=== PATIENT | male | born 1940 | race Caucasian/White ===

== ENCOUNTER 2019-12-03 09:48 | Observation (INO) | payer MEDICARE, SELFPAY ==
[2019-12-02] VITALS (16 sets, daily range): BP systolic 120–161; BP diastolic 59–89; PULSE 48–77; RESP 12–18; TEMP 36.9–37.4; O2SAT 94–98; BMI 31.4
[2019-12-02 09:09] LABS: Basophils Percent Auto 0.4 % (0.2-1.2); Eosinophils Absolute Auto 0.2 K/mm3 (0-0.3); Eosinophils Percent Auto 2.4 % (0-4.4); Hematocrit 44.9 % (42.0-52.0); Hemoglobin 15.9 g/dL (14.0-18.0); Immature Granulocyte Absolute 0.02 K/mm3 (0.00-0.031); Immature Granulocyte Percent A 0.3 % (0-0.5); Lymphocytes Absolute Auto 1.45 K/mm3 (0.9-3.2); Lymphocytes Percent Auto 20.2 % (18.3-44.2); Mean Corpuscular HGB Conc 35.4 g/dl (32-36); Mean Corpuscular Hemoglobin 32.4 pg (26-34); Mean Corpuscular Volume 91.4 fl (80-100); Monocytes Absolute Auto 0.7 K/mm3 (0.1-0.6); Monocytes Percent Auto 9.2 % (2.6-8.5); Neutrophils Absolute Auto 4.9 K/mm3 (1.3-6.7); Neutrophils Percent Auto 67.5 % (45.5-73.1); Platelet Count Result 172 k/mm3 (150-375); Red Blood Count 4.91 M/mm3 (4.6-6.20); Red Cell Distribution Width 11.7 % (11.5-14.5); White Blood Count 7.2 K/mm3 (4.5-10.0)
[2019-12-02 09:19] LABS: Prothrombin Time 12.4 Seconds (11.1-14.7)
[2019-12-02 09:21] LABS: Alanine Aminotransferase 18 U/L (4-50); Albumin Level 4.1 g/dL (3.5-5.1); Alkaline Phosphatase 89 U/L (38-126); Aspartate Amino Transferase 22 U/L (17-59); Bilirubin,Total 1.2 mg/dL (0.2-1.3); Blood Urea Nitrogen 20 mg/dL (9-20); Calcium 9.3 mg/dL (8.4-10.2); Carbon Dioxide 26 mmol/L (22-30); Chloride 106 mmol/L (98-107); Estimated Glomerular Filt Rate > 60; Glucose 126 mg/dL (75-110); Potassium 3.7 mmol/L (3.4-5.0); Sodium 136 mmol/L (137-145)
--- NOTE | 2019-12-02 11:12 | WPDHPUPDATE1 ---
History and Physical Update Update Date/Time: 12/02/19 11:12 History and Physical has been reviewed, including an updated exam of the patient. There are NO changes in the patient's condition. Risks, benefits, and alternatives have been discussed and questions answered. Patient agrees to proceed with procedure.
--- NOTE | 2019-12-02 11:13 | WPDMODSED ---
Moderate Sedation Note-Pt Data Patient Data Allergies Allergy/AdvReac Type Severity Reaction Status Date / Time No Known Allergies Allergy Unknown Verified 11/25/19 14:20 Home Medications Medication Instructions Recorded Confirmed Type finasteride 5 mg tablet 5 mg PO DAILY 11/11/19 12/01/19 History hydrochlorothiazide 25 mg tablet 25 mg PO DAILY #30 tablet 11/11/19 12/01/19 Rx losartan 100 mg tablet 100 mg PO DAILY 11/11/19 12/01/19 History nebivolol 20 mg tablet 40 mg PO DAILY #60 tablet 11/11/19 12/01/19 Rx omega-3 fatty acids 1,000 mg 1,000 mg PO DAILY 11/11/19 12/01/19 History capsule pantoprazole 20 mg tablet,delayed 40 mg PO DAILY tablet 11/11/19 12/02/19 History release pramipexole 0.5 mg tablet 0.5 mg PO DAILY tablet 11/11/19 12/01/19 History amlodipine 5 mg tablet 5 mg PO DAILY #30 tablet 11/25/19 12/01/19 Rx aspirin 81 mg tablet,delayed 81 mg PO DAILY #30 tablet 11/25/19 12/01/19 Rx release pravastatin 10 mg tablet 10 mg PO DAILY #30 tablet 11/25/19 12/01/19 Rx Current Medications: Active Medications Sodium Chloride (Normal Saline Iv) 500 mls @ 100 mls/hr IV CONT .Q5H FRIEDA Sedation/Anesthesia: No previous sedation/anesthesia problems (including family history). [facility] Family History Family History (Updated 12/01/19 @ 14:59 by Malathi Enrique RN) Sibling Acute myocardial infarction Social History Social History Smoking status: Never smoker Mod Sed Physical Exam Physical Exam Pre Procedural Exam: Normal: Airway Hours since solid foods: 10 Hours since liquid intake: 10 Internal Medicine - PN: Obj Da Vital Signs Vital Signs: Vital Signs - 24 hr 12/02/19 09:00 Temperature 37.1 C Pulse Rate 60 Respiratory Rate 12 Blood Pressure 161/75 H Pulse Oximetry 98 Meds/Results Medications: Active Medications Generic Name Dose Route Start Last Admin Trade Name Freq PRN Reason Stop Dose Admin Sodium Chloride 500 mls @ 100 mls/hr 12/02/19 06:15 Normal Saline Iv IV CONT .Q5H FRIEDA Labs CBC & Chem 7: 12/02/19 09:02 12/02/19 09:02 Labs: Laboratory Results - last 24 hr 12/02/19 12/02/19 12/02/19 09:02 09:02 09:02 WBC 7.2 RBC 4.91 Hgb 15.9 Hct 44.9 MCV 91.4 MCH 32.4 MCHC 35.4 RDW 11.7 Plt Count 172 MPV 9.0 Immature Gran % (Auto) 0.3 Neut % (Auto) 67.5 Lymph % (Auto) 20.2 Ward % (Auto) 9.2 H Eos % (Auto) 2.4 Baso % (Auto) 0.4 Lymph # (Auto) 1.45 Ward # (Auto) 0.7 H Eos # (Auto) 0.2 Baso # (Auto) 0.0 Abs Immat Gran (auto) 0.02 Absolute Neuts (auto) 4.9 Absolute Nucleated RBC 0.0 Nucleated RBC % 0.0 PT 12.4 INR 1.0 Sodium 136 L Potassium 3.7 Chloride 106 Carbon Dioxide 26 BUN 20 Creatinine 1.00 Estim Creat Clear Calc Not Reportable Estimated GFR > 60 Glucose 126 H Calcium 9.3 Total Bilirubin 1.2 AST 22 ALT 18 Alkaline Phosphatase 89 Total Protein 7.0 Albumin 4.1 ASA Classification/Sedation ASA Classification/Sedation Risks: Risks, benefits and alternatives explained and patient/family accepted plan for sedation. Patient re-evaluated immediately prior to sedation.
--- NOTE | 2019-12-02 12:14 | WPDCARDPROC ---
Cardiac Cath Procedure Note Date of procedure:: 12/02/19 Performing physician:: Karl Aguilera MD Indication:: Chest pain, shortness of breath; obstructive CAD found on coronary CT angiogram Brief clinical history:: 79-year-old male with CAD, hypertension. Patient was referred by for coronary angiogram in the setting of dyspnea on exertion. More recently, he has been experiencing chest discomfort for last 2-3 days. Patient had coronary CT angiogram at [facility] on 11/18/2019 which reportedly showed a calcium score of 110; severe stenosis of mid LAD with both calcified and noncalcified plaque with difficulty measuring the lumen; mild stenosis mid RCA, proximal left main and left circumflex artery. Benefits, risks and alternatives of the procedure were discussed with the patient and his and informed consent was taken prior to the procedure. Procedure Procedure note:: CARDIAC CATHETERIZATION AND PERCUTANEOUS CORONARY INTERVENTION REPORT DATE OF PROCEDURE: 12/02/2019 INDICATION FOR PROCEDURE: chest pain, shortness of breath, obstructive CAD on coronary CT angiogram PROCEDURES PERFORMED: 1. Left heart catheterization- Selective left and right coronary angiogram; left ventriculogram and hemodynamic assessment 2. Percutaneous coronary intervention- A) balloon angioplasty and stenting of proximal -mid LAD using a 4.0 x 22 mm Biotronik orsiro sirolimus eluting stent under intravascular ultrasound guidance B) intravascular ultrasound (IVUS) of proximal and mid LAD 3. Selective right common femoral angiogram and deployment of Angio-Seal hemostatic device 4. Moderate sedation-CPT code 94002 MODERATE SEDATION: Midazolam 1 mg; fentanyl 25 mcg. Start time 1118 , Stop time 1209 ; Total [id number] time 51 minutes; Justus Wilcox RN was trained observer for moderate sedation. ACCESS SITE: Right common femoral artery PROCEDURE NOTE: After obtaining informed consent, patient was brought to catheterization lab and prepped and draped in a usual sterile manner. After local anesthesia with lidocaine, right common femoral artery access was taken with micropuncture needle followed by insertion of a 6 Djiboutian sheath. Selective left and right coronary angiogram was performed using 5 Djiboutian JL5 and JR4 catheters respectively. Orthogonal views were taken. Next, a 5 [place]iboutian pigtail catheter was advanced in the LV cavity and was flushed with normal saline. LV pressure measurement was performed. After this, left ventriculogram was performed. The catheter was flushed again, and gradient across the aortic valve was measured on the pullback of the catheter. Selective right common femoral angiogram was performed after PCI followed by successful deployment of Angio-Seal vascular closure device. Patient tolerated procedure well without any immediate procedure related complications. FINDINGS: LEFT MAIN CORONARY: the left main coronary artery is a large caliber vessel with minimal irregularity in the mid segment. The vessel bifurcates into LAD and left circumflex branches. LEFT ANTERIOR DESCENDING ARTERY: The LAD is a large caliber vessel which tapers distally and reaches the LV apex. There is coks-jx-ojeydjhd disease in the lower part of the proximal segment and poorly defined, napkin ring stenosis in the mid segment at the origin of a small size septal assistant customer service manager branch which has high-grade ostial stenosis. The diagonal branches are small size vessels without significant focal stenosis. LEFT CIRCUMFLEX ARTERY: The left circumflex artery is a large-sized vessel with mild narrowing at the ostium and proximal segment. The vessel gives rise to small to medium-sized OM 1 branch and essentially continues as large size OM 2 branch without significant focal stenosis. RIGHT CORONARY ARTERY: the right coronary artery is a medium to large-sized vessel with mild 20-30% eccentric plaque in the mid segment. The vessel gives rise to small-sized PDA an
--- NOTE | 2019-12-02 12:20 | SUR.PHASEII ---
BEGIN PHASE II RECOVERY. RETURNS TO IMPLEMENTATION PROJECT MANAGER 5 VIA STRETCHER S/P [facility] W/ PCI TO PROX LAD BY DR. KNOWLES. TRANSFERRED TO BED. ANGIOSEAL CLOSURE DEVICE TO R.FA PUNCTURE SITE, COVERED W/ C/D/I GUAZE AND TEGADERM DRESSING. SITE SOFT, NONTENDER. NO BLEEDING OR HEMATOMA NOTED TO SITE. A&OX 3, AWAKE, DENIES PAIN. IVF'S INFUSING ORDERED POST PCI. BEDREST X 2 HOURS UNTIL 1408. VSS. R. PEDAL PULSE STRONG; SENSATION AND MOVEMENT TO R. FOOT WNL. TO BEDSIDE. WILL CONTINUE TO MONITOR.
--- NOTE | 2019-12-02 13:20 | SUR.PHASEII ---
END PHASE II RECOVERY AT THIS TIME. PT. ADMITTED TO EXTENDED RECOVERY POST OUTPATIENT PROCEDURE. TO REMAIN IN TECHNICAL DATA ANALYST 5 FOR STAY. SEE PCS FOR FURTHER DOCUMENATION. R. GROIN SITE REMAINS UNCHANGED. HAS BEEN UNABLE TO VOID X 2 ATTEMPTS IN URINAL WHILE ON BEDREST. BLADDER DISTENTION NOTED AND INCREASING REPORTS OF DISCOMFORT AT BLADDER AREA. 18FR HILLMAN INSERTED PER ORDER AND REQUEST OF PT. WITHOUT DIFFICULTY AT 1315. TOLERATED WELL. INITIAL RETURN OF URINE CLEAR YELLOW. VOICED RELIEF OF BLADDER DISFOMFORT AND BLADDER DISTENTION SUBSIDED. VSS. RESTING W/ EYES CLOSED AT THIS TIME. AT BEDSIDE. WILL CONTINUE TO MONITOR.
--- NOTE | 2019-12-02 13:21 | ADMGEN ---
This patient, Stephen Sol, was admitted to ([facility]) [facility] EXTENDED RECOVERY POST OUTPATIENT PROCEDURE ([facility]HC W/ PCI W/ DR. KNOWLES). Patient/family oriented to hospital policies and general routines including ID bracelet, bed and alarms, visiting hours, pain management, procedures, bathroom and other care routines, personal items, smoking policy, room service/diet, and visiting hours. Valuables list has been completed. Information on how to activate the Rapid Response Team has been discussed. Patient/Family are encouraged to report perceived risks to care and to ask questions if they do not understand what they are told or what they should do.
--- NOTE | 2019-12-02 14:00 | ECG_ITS ---
Measurements Intervals [place] Rate: 51 P: 47 KS: 277 QRS: -22 QRSD: 112 T: 5 QT: 443 QTc: 410 Interpretive Statements SINUS BRADYCARDIA WITH FIRST DEGREE AV BLOCK POSSIBLE LEFT VENTRICULAR HYPERTROPHY MINIMAL Q WAVES- LATERAL LEADS ABNORMAL ECG Electronically Signed On 12-02-2019 14:58:26 CDT by Margarito Aguila D.O.
--- NOTE | 2019-12-02 14:30 | PC.NURSE ---
HAS BEEN HAVING BLOODY URINE DRAINING FROM HILLMAN SINCE APPROX 10 - 15 MINUTES AFTER UNEVENTFUL INSERTION AT 1315. ROMEO CLEVELAND STUCCO MASON FROM [facility] NOTIFIED AND AWARE. VISUALIZED CATHETER. IVF'S RUNNING ORDERED. ANGIOMAX GTT WAS COMPLETED AT 1330 AND HAD RECEIVED BRILINTA AND ASA DOSE IN CARDIAC RESUME WRITER. WILL CONTINUE TO MONITOR AT THIS TIME. R. GROIN CATH SITE CLEAR. GUAZE AND TEGADERM DRESSING C/D/I. R. PEDAL PULSE STRONG.
--- NOTE | 2019-12-02 15:30 | PC.NURSE ---
URINE HAS NOT CLEARED NOW THAT 2 HOURS HAS PASSED SINCE ANGIOMAX GTT OFF AT 1330. UROLOGY CONSULT ORDERED BY ROMEO CLEVELAND NP FROM [facility]. UROLOGY CONSULT CALLED TO DR. MELENDEZ' OFFICE.
[2019-12-02] MEDS: SODIUM CHLORIDE 0.9% IV 1,000 ML 125 ML IV CONT (16:00)
--- NOTE | 2019-12-02 16:00 | PC.NURSE ---
POWER DISTRIBUTION ENGINEER DIANA RUBIN FROM UROLOGY HERE TO SEE PT. PT. NOW W/ C/O BLADDER PAIN AT TIMES AND SPASMS.
--- NOTE | 2019-12-02 16:07 | WPDURCON ---
Assessment and Plan Assessment and plan (1) Gross hematuria: Code(s): R31.0 - Gross hematuria Status: Acute Assessment and Plan: Will plan to switch catheter out for a 22fr [address] reyes and start CBI. May get a RODNEY in the am if no improvement. (2) BPH (benign prostatic hyperplasia): Code(s): N40.0 - Benign prostatic hyperplasia without lower urinary tract symptoms Status: Acute Assessment and Plan: Continue Finasteride. Will start Flomax as well. (3) Urinary retention: Code(s): R33.9 - Retention of urine, unspecified Status: Acute Assessment and Plan: Likely secondary to anesthesia. Will plan to do a voiding trial prior to discharge. Urology Consult Note HPI Date Seen: 12/02/19 Requesting Physician: Karl Aguilera MD Primary Care Provider: George Martin, Consult Narrative Narrative: Stephen Sol is a 79 year old male who underwent cardiac catheterization today with stent placement. He was given anti-coagulants and went into urinary retention post operatively resulting in a catheter placement. The catheter was easily placed without difficulty, urine return initially was clear and yellow but slowly changed from yellow to pink and then to bright red blood. He is also c/o bladder spasms with urethral bleeding. His creatinine was 1.00 and WBC is 7.2. He has been on Finasteride for years for BPH but denies any difficulty urinating at home prior to his procedure. He also denies abdominal or flank pain or dysuria. Review of Systems Cardiovascular: Cardiovascular: Denies chest pain Respiratory: Respiratory: Reports no additional respiratory complaints Gastrointestinal: Gastrointestinal: Denies abdominal pain, Denies nausea and Denies vomiting Genitourinary: Genitourinary: Reports hematuria and Reports other (urinary retention) [facility] Past Medical History Medical History Edema of both ankles HTN (hypertension) Surgical History Surgical History History of appendectomy Family History Family History Sibling Acute myocardial infarction Social History Social History Smoking status: Never smoker Meds Home Medications and Allergies Home Medications Medication Instructions Recorded Confirmed Type finasteride 5 mg tablet 5 mg PO DAILY 11/11/19 12/02/19 History hydrochlorothiazide 25 mg tablet 25 mg PO DAILY #30 tablet 11/11/19 12/02/19 Rx losartan 100 mg tablet 100 mg PO DAILY 11/11/19 12/02/19 History nebivolol 20 mg tablet 40 mg PO DAILY #60 tablet 11/11/19 12/02/19 Rx omega-3 fatty acids 1,000 mg 1,000 mg PO DAILY 11/11/19 12/02/19 History capsule pantoprazole 20 mg tablet,delayed 40 mg PO Q12H tablet 11/11/19 12/02/19 History release pramipexole 0.5 mg tablet 0.5 mg PO HS tablet 11/11/19 12/02/19 History amlodipine 5 mg tablet 5 mg PO DAILY #30 tablet 11/25/19 12/02/19 Rx aspirin 81 mg tablet,delayed 81 mg PO DAILY #30 tablet 11/25/19 12/02/19 Rx release pravastatin 10 mg tablet 10 mg PO DAILY #30 tablet 11/25/19 12/02/19 Rx Allergies Allergy/AdvReac Type Severity Reaction Status Date / Time No Known Allergies Allergy Unknown Verified 11/25/19 14:20 Vital Signs Vital Signs - 24 hr 12/02/19 09:00 Temperature 98.8 F Pulse Rate 60 Respiratory Rate 12 Blood Pressure 161/75 H Pulse Oximetry 98 Exam Resp: Effort & Inspection: normal respiratory effort Cardio: Rate: regular rate GI: GI Palp: No abdominal tenderness : Meatus: Blood at meatus present Urinary Catheter: Urinary Catheter: patent and draining, urine cloudy and urine red Results Labs CBC & Chem 7: 12/02/19 09:02 12/02/19 09:02 Labs: Short CBC 12/02/19 Range/Units 09:02 WBC 7.2 (4.5-10.0)
--- NOTE | 2019-12-02 17:27 | PC.NURSE ---
ORDERS RECEIVED FROM YAMILEX RUBIN TO EXCHANGE HILLMAN CATHETER TO [address]FR [address] AND INITIATE CBI. PT'S UO HAS DROPPED OFF AND IS HAVING BLADDER PAIN AND SPASMS INTERMITTANTLY. SUPPLIES HAVE BEEN ORDERED AND ARE HERE. ATTEMPTED TO IRRIGATE CURRENT 18FR HILLMAN W/ STERILE SALINE TO CHECK URINE FLOW, BUT UNABLE TO ASPIRATE ANY URINE OR BLOODY URINE OR CLOTS FROM CATHETER AFTER INSTILLING SMALL AMOUNT OF STERILE SALINE. PT. ALSO C/O INCREASED DISCOMFORT WHEN IRRIGATED. CALL PLACED TO DR. MELENDEZ' EXCHANGE TO REPORT AND REQEUST ORDERS.
--- NOTE | 2019-12-02 18:05 | PC.NURSE ---
RETURN CALL RECEIVED FROM DR. BERG AT THIS TIME, RE: BLOODY URINE AND PAIN CONCERNS. NOTIFIED OF CONCERNS. HE REQUESTED THAT CYSTO CART BE BROUGHT TO BEDSIDE AND HE WILL ATTEMPT TO NOTIFY DR. MELENDEZ TO COME SEE PT.
--- NOTE | 2019-12-02 18:39 | PC.NURSE ---
DR. MELENDEZ HERE TO SEE PT RE: BLOODY DECREASED URINE OUTPUT AND BLADDER PAIN/SPASMS.
[2019-12-02] MEDS: MORPHINE SULFATE 2 MG/ML INJ 1 MG IV PUSH ×3 (18:55→23:43)
[2019-12-02] MEDS: PRAMIPEXOLE 0.5 MG TABLET PO (21:08)
[2019-12-02] MEDS: TICAGRELOR 90 MG TABLET PO (21:08)
[2019-12-02] MEDS: TAMSULOSIN HCL 0.4 MG CAPSULE PO (21:09)
[2019-12-02] MEDS: PANTOPRAZOLE 40 MG TABLET PO (21:44)
[2019-12-03] VITALS (13 sets, daily range): BP systolic 115–150; BP diastolic 53–94; PULSE 50–78; RESP 12–18; TEMP 36.4–37.1; O2SAT 94–100
[2019-12-03] MEDS: MORPHINE SULFATE 2 MG/ML INJ 1 MG IV PUSH ×3 (01:46→12:38)
--- NOTE | 2019-12-03 02:06 | PC.NURSE ---
12/03/19: 0202: AT 1839 ON THE November, DR BOBO WAS HERE TO PLACE DISCONTINUE THE CURRENT HILLMAN CATHETER AND PLACE A 3-WAY CATHETER IN PATIENT. PATIENT IS HAVING DARK RED URINE WITH CLOTS AND IS WAS AT THE TIME HAVING LOTS OF PAIN AND DIFFICULTY PASSING URINE. BLOOD CLOTS WERE REMOVED AND CATHETER IS SET TO WIDE OPEN. SINCE THEN THE BAGS ARE CHANGED EVER 30 MIN. AND THE PATIENT HAS HAD CLOTS BLOCKING TWICE EVEN WITH WIDE OPEN. PATIENT WOULD CALL OUT STATING THAT THE PAIN IS UNBEARABLE . BAG WILL BE STOPPED AND URINE FLOW STOPPED. IRRIGATED CATHETER AND WAS ABLE TO REMOVE CLOTS AND WAS ABLE TO GET FLOW AGAIN. STILL A BRIGHT RED BLOOD.
[2019-12-03 06:21] LABS: Hematocrit 39.6 % (42.0-52.0); Hemoglobin 14.1 g/dL (14.0-18.0); Mean Corpuscular HGB Conc 35.6 g/dl (32-36); Mean Corpuscular Hemoglobin 32.8 pg (26-34); Mean Corpuscular Volume 92.1 fl (80-100); Mean Platelet Volume 9.3 fl (7.4-10.4); Platelet Count Result 168 k/mm3 (150-375); Red Cell Distribution Width 11.8 % (11.5-14.5); White Blood Count 10.5 K/mm3 (4.5-10.0)
[2019-12-03 06:34] LABS: Blood Urea Nitrogen 22 mg/dL (9-20); Calcium 8.6 mg/dL (8.4-10.2); Carbon Dioxide 25 mmol/L (22-30); Chloride 105 mmol/L (98-107); Estimated CRCL calculation 73 ml/min; Estimated Glomerular Filt Rate > 60; Glucose 146 mg/dL (75-110); Potassium 3.6 mmol/L (3.4-5.0); Sodium 135 mmol/L (137-145)
--- NOTE | 2019-12-03 08:44 | WPDPN ---
Progress Note: A&P Assessment and Plan (1) BPH (benign prostatic hyperplasia): Code(s): N40.0 - Benign prostatic hyperplasia without lower urinary tract symptoms Status: Acute (2) Gross hematuria: Code(s): R31.0 - Gross hematuria Status: Acute Assessment and Plan: - Irrigation at bedside with removal of ~ 30ml of clot, CBI resumed and urine clear - continue CBI , okay to titrate to clear - continue Finasteride Review of Systems Review of Systems: All systems reviewed & are unremarkable except as noted in HPI and below Constitutional: Constitutional: Reports no additional constitutional complaints Eyes: Eyes: Reports no additional eye complaints Gastrointestinal: Gastrointestinal: Reports no additional gastrointestinal complaints Genitourinary: Comments: catheter pain Exam Const: General: no acute distress Eyes: General: appearance normal, both eyes and all related structures GI: Inspection: non-distended GI Palp: No Tenderness to palpation present (GI) : Other: CBi with red urine Objective Data Vital Signs Vital Signs: Vital Signs - 24 hr 12/02/19 09:00 12/02/19 12:30 12/02/19 12:45 Temperature 37.1 C 36.9 C Pulse Rate 60 60 56 L Pulse Rate [Bilateral Pedal (Dorsalis Pedis) Palpation] Respiratory Rate 12 16 16 Blood Pressure 161/75 H 154/83 H 160/68 H Pulse Oximetry 98 95 94 12/02/19 13:00 12/02/19 13:15 12/02/19 13:45 Temperature Pulse Rate 57 L 50 L 48 L Pulse Rate [Bilateral Pedal (Dorsalis Pedis) Palpation] Respiratory Rate 16 16 16 Blood Pressure 155/71 H 127/77 128/75 Pulse Oximetry 95 94 96 12/02/19 14:00 12/02/19 14:15 12/02/19 15:15 Temperature Pulse Rate 54 L 56 L 68 Pulse Rate [Bilateral Pedal (Dorsalis Pedis) Palpation] Respiratory Rate 16 16 Blood Pressure 139/59 L 144/72 H Pulse Oximetry 96 98 12/02/19 16:00 12/02/19 16:15 12/02/19 17:15 Temperature Pulse Rate 59 L 62 61 Pulse Rate [Bilateral Pedal (Dorsalis Pedis) Palpation] Respiratory Rate 16 18 Blood Pressure 132/70 120/81 Pulse Oximetry 98 97 12/02/19 18:00 12/02/19 18:15 12/02/19 20:00 Temperature 37.4 C 37.1 C Pulse Rate 66 66 77 Pulse Rate [Bilateral Pedal (Dorsalis Pedis) Palpation] 67 Respiratory Rate 18 17 Blood Pressure 145/89 H 150/86 H Pulse Oximetry 98 97 12/02/19 22:00 12/03/19 00:00 12/03/19 02:00 Temperature 37.1 C Pulse Rate 68 69 58 L Pulse Rate [Bilateral Pedal (Dorsalis Pedis) Palpation] Respiratory Rate 16 Blood Pressure 140/76 Pulse Oximetry 94 12/03/19 04:00 12/03/19 08:00 Temperature Pulse Rate 58 L 78 Pulse Rate [Bilateral Pedal (Dorsalis Pedis) Palpation] Respiratory Rate 14 14 Blood Pressure 122/64 150/71 H Pulse Oximetry 95 100 Intake/Output Intake/Output: Intake & Output 11/30/19 12/01/19 12/02/19 12/03/19 23:59 23:59 23:59 23:59 Intake Total 1480 Output Total 3500 Balance -Milk Mantra Meds/Results Medications: Active Medications Generic Name Dose Route Start Last Admin Trade Name Freq PRN Reason Stop Dose Admin Aspirin 81 mg 12/03/19 09:00 Aspirin Ec PO DAILY [facility] Finasteride 5 mg 12/03/19 09:00 Proscar PO DAILY [facility] Sodium Chloride 500 mls @ 100 mls/hr 12/02/19 06:15 Normal Saline Iv IV CONT .Q5H FRIEDA Losartan Potassium 100 mg 12/03/19 09:00 Cozaar PO DAILY [facility] Morphine Sulfate 1 mg 12/02/19 18:48 12/03/19 01:46 Morphine Sulfate Inj IV PUSH 1 mg Q2H PRN Administration Pain Rated 4-6 Nebivolol 40 mg 12/03/19 09:00 Bystolic PO DAILY FRIEDA Pantoprazole Sodium 40 mg 12/02/19 21:00 12/02/19 21:44 Protonix PO 40 mg Q12HR FRIEDA Administration Pramipexole Dihydrochloride 0.5 mg 12/02/19 21:00 12/02/19 21:08 Mirapex PO 0.5 mg HS FRIEDA Administration Pravastatin Sodium 10 mg 12/03/19 09:00 Pravastatin Sodium PO DAILY [facility] Tamsulosin HCl 0.4 mg 12/02/19 16
[2019-12-03] MEDS: FINASTERIDE 5 MG TABLET PO (09:00)
[2019-12-03] MEDS: PANTOPRAZOLE 40 MG TABLET PO ×2 (09:00→21:43)
[2019-12-03] MEDS: LOSARTAN POTASSIUM 100 MG TABLET PO (09:00)
[2019-12-03] MEDS: ASPIRIN 81 MG ENTERIC TABLET PO (09:00)
[2019-12-03] MEDS: PRAVASTATIN SODIUM 10 MG TABLET PO (09:00)
[2019-12-03] MEDS: TICAGRELOR 90 MG TABLET PO ×2 (09:01→22:00)
[2019-12-03] MEDS: TAMSULOSIN HCL 0.4 MG CAPSULE PO (09:01)
[2019-12-03] MEDS: NEBIVOLOL HCL 5 MG TABLET 40 MG PO (09:01)
--- NOTE | 2019-12-03 09:19 | PM.PNCARD ---
Progress Note: A&P Assessment and Plan (1) CAD (coronary artery disease): Code(s): I25.10 - Atherosclerotic heart disease of kaibab coronary artery without angina pectoris Status: Acute Assessment and Plan: Post CAYDEN to the LAD 12/02/2019. No chest discomfort, shortness of breath, orthopnea, PND, lightheadedness or palpitations. Right groin site without swelling or bleeding. No femoral bruit. Distal pulses intact. Complication of hematuria after Piña was inserted. Urology consulted. (2) Gross hematuria: Code(s): R31.0 - Gross hematuria Status: Acute Assessment and Plan: Urology management appreciated. CBI and titrate to clear. Additional Plan Urology would like to observe him 1 more day. Will transfer to [facility] with tele Dr Aguila notified Plan discussed Dr. Dumont 0950 12/03/2019 Time Spent With Patient Time with patient: 15 - 25 minutes Subjective Date/time seen: 12/03/19 09:19 Interval history: Follow-up for: Coronary artery disease status post drug-eluting stent to LAD 12/02/2019. Gross hematuria post Piña insertion 12/02/2019 currently with CBI. Date of service: 12/03/2019 Subjective: Denied chest discomfort, shortness of breath, lightheadedness or palpitations. Bladder discomfort. Review of Systems Constitutional: Constitutional: Reports fatigue Eyes: Eyes: Denies blurry vision ENT: Reports Normal hearing present Cardiovascular: Cardiovascular: Denies chest pain, Denies pedal edema, Denies lightheadedness and Denies palpitations Respiratory: Respiratory: Denies cough and Denies dyspnea Gastrointestinal: Gastrointestinal: Denies abdominal pain Genitourinary: Genitourinary: Reports hematuria and Reports other (Bladder spasms) Musculoskeletal: Musculoskeletal: Denies back pain Integumentary/Breasts: Skin/Breast: Denies unusual bruising Neurologic: Denies headache(s) and Denies numbness Psychiatric: Psychiatric: Denies anxiety Endocrine: Endocrine: Denies cold intolerance Hematologic/Lymphatic: Hematologic/Lymphatic: Denies easy bleeding and Denies easy bruising Exam Const: General: cooperative and no acute distress Nutritional Appearance: overweight Orientation/consciousness: patient oriented x3 HENMT: Mouth: Yes moist mucous membranes Eyes: Pupils: Equal, round and reactive pupils present Neck: Neck: supple and no JVD Chest: Chest palpation & inspection: normal inspection of the chest Resp: Effort & Inspection: normal respiratory effort Auscultation: clear to auscultation bilaterally Cardio: Rate: regular rate Rhythm: regular rhythm Other: Right groin site without bleeding or swelling. No femoral bruit. Distal pulses intact. GI: Auscultation: normal bowel sounds : Other: CBI clear at this time. Continues to have some blood from the meatus Urinary Catheter: Urinary Catheter: patent and draining, urine clear and other (CBI) Skin: General skin exam: normal color Lesions: no lesions Rashes: no rashes Neuro: General: patient oriented x3 Cognition (Neuro): normal cognition Speech: normal speech Extrem: General: normal to inspection and no pedal edema Right lower extremity: no edema Left lower extremity: no edema Objective Data Vital Signs Vital Signs: Vital Signs - 24 hr 12/02/19 12:30 12/02/19 12:45 12/02/19 13:00 Temperature 36.9 C Pulse Rate 60 56 L 57 L Pulse Rate [Bilateral Pedal (Dorsalis Pedis) Palpation] Respiratory Rate 16 16 16 Blood Pressure 154/83 H 160/68 H 155/71 H Pulse Oximetry 95 94 95 12/02/19 13:15 12/02/19 13:45 12/02/19 14:00 Temperature Pulse Rate 50 L 48 L 54 L Pulse Rate [Bilateral Pedal (Dorsalis Pedis) Palpation] Respiratory Rate 16 16 Blood Pressure 127/77 128/75 Pulse Oximetry 94 96 12/02/19 14:15 12/02/19 15:15 12/02/19 16:00 Temperature Pulse Rate 56 L 68 59 L Pulse Rate [Bilateral Pedal (Dorsalis Pedis) Palpation] Respiratory Rate 16 16 Blood Pr
--- NOTE | 2019-12-03 11:25 | PC.NURSE ---
This patient, Stephen Sol, was received from [facility] on 12/03/19 at 1746. Personal belongings list checked and signed. Patient/family oriented to unit policies and routines
--- NOTE | 2019-12-03 11:43 | PC.NURSE ---
1115-pt report called to LIZZY Epps. No distress noted. AOx4. CBI urine is quite clear, no evidence of clot noted. Taken via bed to new room.Groin site soft and non-tender, no evidence of bleeding or hematoma noted. No distress noted or verbalized at time of transfer.
[2019-12-03 13:55] LABS: Hematocrit 39.6 % (42.0-52.0); Hemoglobin 14.1 g/dL (14.0-18.0)
[2019-12-03] MEDS: PRAMIPEXOLE 0.5 MG TABLET PO (21:43)
[2019-12-03] MEDS: OXYBUTYNIN CHLORIDE 5 MG TABLET PO (21:43)
[2019-12-04] VITALS (9 sets, daily range): BP systolic 123–155; BP diastolic 56–82; PULSE 54–73; RESP 18; TEMP 36.4–36.7; O2SAT 92–96
[2019-12-04] MEDS: OXYBUTYNIN CHLORIDE 5 MG TABLET PO ×3 (06:04→21:15)
[2019-12-04] MEDS: MORPHINE SULFATE 2 MG/ML INJ 1 MG IV PUSH ×2 (06:05→20:46)
[2019-12-04 06:18] LABS: Hematocrit 40.8 % (42.0-52.0); Hemoglobin 14.4 g/dL (14.0-18.0); Mean Corpuscular HGB Conc 35.3 g/dl (32-36); Mean Corpuscular Hemoglobin 32.7 pg (26-34); Mean Corpuscular Volume 92.5 fl (80-100); Mean Platelet Volume 9.1 fl (7.4-10.4); Platelet Count Result 180 k/mm3 (150-375); Red Blood Count 4.41 M/mm3 (4.6-6.20); Red Cell Distribution Width 11.9 % (11.5-14.5); White Blood Count 11.2 K/mm3 (4.5-10.0)
[2019-12-04 06:33] LABS: Blood Urea Nitrogen 26 mg/dL (9-20); Calcium 8.8 mg/dL (8.4-10.2); Carbon Dioxide 22 mmol/L (22-30); Chloride 104 mmol/L (98-107); Estimated CRCL calculation 61 ml/min; Estimated Glomerular Filt Rate 59; Glucose 127 mg/dL (75-110); Potassium 3.5 mmol/L (3.4-5.0); Sodium 136 mmol/L (137-145)
--- NOTE | 2019-12-04 07:29 | WPDUROPN2 ---
Subjective Subjective Date/Time Seen: 12/04/19 07:29 Hematuria due to BPH Objective Data Vital Signs Vital Signs: Vital Signs - 24 hr 12/03/19 08:00 12/03/19 09:01 12/03/19 10:00 Temperature Pulse Rate 78 76 64 Pulse Rate [Bilateral Pedal (Dorsalis Pedis) Palpation] 64 Respiratory Rate 14 16 Blood Pressure 150/71 H 140/78 Pulse Oximetry 100 99 12/03/19 12:00 12/03/19 13:15 12/03/19 13:17 Temperature Pulse Rate 67 50 L 58 L Pulse Rate [Bilateral Pedal (Dorsalis Pedis) Palpation] Respiratory Rate 12 14 Blood Pressure 115/53 L 132/94 H Pulse Oximetry 97 100 12/03/19 13:20 12/03/19 16:00 12/03/19 20:00 Temperature 97.6 F Pulse Rate 56 L 74 72 Pulse Rate [Bilateral Pedal (Dorsalis Pedis) Palpation] Respiratory Rate 16 Blood Pressure 121/56 L Pulse Oximetry 97 12/03/19 22:00 12/04/19 00:00 12/04/19 04:00 Temperature 98.4 F Pulse Rate 64 55 L 54 L Pulse Rate [Bilateral Pedal (Dorsalis Pedis) Palpation] Respiratory Rate 18 Blood Pressure 130/61 Pulse Oximetry 95 12/04/19 06:00 Temperature 98 F Pulse Rate 73 Pulse Rate [Bilateral Pedal (Dorsalis Pedis) Palpation] Respiratory Rate 18 Blood Pressure 155/82 H Pulse Oximetry 92 Intake/Output Intake/Output: Intake & Output 12/01/19 12/02/19 12/03/19 12/04/19 23:59 23:59 23:59 23:59 Intake Total 1740 150 Output Total 3500 600 Balance -1760 -450 Meds/Results Medications: Active Medications Generic Name Dose Route Start Last Admin Trade Name Freq PRN Reason Stop Dose Admin Aspirin 81 mg 12/03/19 09:00 12/03/19 09:00 Aspirin Ec PO 81 mg DAILY FRIEDA Administration Finasteride 5 mg 12/03/19 09:00 12/03/19 09:00 Proscar PO 5 mg DAILY FRIEDA Administration Losartan Potassium 100 mg 12/03/19 09:00 12/03/19 09:00 Cozaar PO 100 mg DAILY FRIEDA Administration Magnesium Citrate 150 ml 03/19/20 07:28 Citrate Of Magnesia PO 12/04/19 07:29 ONCE ONE Morphine Sulfate 1 mg 12/02/19 18:48 12/04/19 06:05 Morphine Sulfate Inj IV PUSH 1 mg Q2H PRN Administration Pain Rated 4-6 Nebivolol 40 mg 12/03/19 09:00 12/03/19 09:01 Bystolic PO 40 mg DAILY FRIEDA Administration Oxybutynin Chloride 5 mg 12/03/19 22:00 12/04/19 06:04 Ditropan PO 5 mg Q8H FRIEDA Administration Pantoprazole Sodium 40 mg 12/02/19 21:00 12/03/19 21:43 Protonix PO 40 mg Q12HR FRIEDA Administration Pramipexole Dihydrochloride 0.5 mg 12/02/19 21:00 12/03/19 21:43 Mirapex PO 0.5 mg HS FRIEDA Administration Pravastatin Sodium 10 mg 12/03/19 09:00 12/03/19 09:00 Pravastatin Sodium PO 10 mg DAILY FRIEDA Administration Tamsulosin HCl 0.4 mg 12/02/19 16:15 12/03/19 09:01 Flomax PO 0.4 mg QAM FRIEDA Administration Ticagrelor 90 mg 12/02/19 21:00 12/03/19 22:00 Brilinta PO 90 mg Q12HR FRIEDA Administration Labs Labs: Laboratory Results - last 24 hr 12/03/19 12/03/19 12/03/19 06:12 06:12 13:50 WBC 10.5 H RBC 4.30 L Hgb 14.1 14.1 Hct 39.6 L 39.6 L MCV 92.1 MCH 32.8 MCHC 35.6 RDW 11.8 Plt Count 168 MPV 9.3 Sodium 135 L Potassium 3.6 Chloride 105 Carbon Dioxide 25 BUN 22 H Creatinine 1.00 Estim Creat Clear Calc 73 Estimated GFR > 60 Glucose 146 H Calcium 8.6 12/04/19 12/04/19 06:05 06:05 WBC 11.2 H RBC 4.41 L Hgb 14.4 Hct 40.8 L MCV 92.5 MCH 32.7 MCHC 35.3 RDW 11.9 Plt Count 180 MPV 9.1 Sodium 136 L Potassium 3.5 Chloride 104 Carbon Dioxide 22 BUN 26 H Creatinine 1.20 Estim Creat Clear Calc 61 Estimated GFR 59 Glucose 127 H Calcium 8.8
--- NOTE | 2019-12-04 07:30 | WPDUROPN2 ---
Progress Note: A&P Assessment and Plan (1) Urinary retention: Code(s): R33.9 - Retention of urine, unspecified Status: Acute (2) BPH (benign prostatic hyperplasia): Code(s): N40.0 - Benign prostatic hyperplasia without lower urinary tract symptoms Status: Acute (3) Gross hematuria: Code(s): R31.0 - Gross hematuria Status: Acute Assessment and Plan: Ongoing hematuria ongoing hematuria which now seems to be mostly related to intractable bladder spasms. I would like to get his Piña catheter out as soon as possible but now he seems to be fairly well constipated which is going to predispose to retention. Give him some magnesium citrate, stop the CBI and his urine remains clear consider a voiding trial this afternoon. Subjective Subjective Date/Time Seen: 12/04/19 07:30 Hematuria due to BPH/traumatic catheter Review of Systems Cardiovascular: Cardiovascular: Denies chest pain, Denies lightheadedness, Denies palpitations and Denies dyspnea Respiratory: Respiratory: Denies dyspnea Gastrointestinal: Gastrointestinal: Denies diarrhea, Denies nausea and Denies vomiting Genitourinary: Genitourinary: Denies hematuria and Denies dysuria Endocrine: Endocrine: Denies palpitations Exam Const: General: no acute distress Resp: Effort & Inspection: normal respiratory effort GI: Inspection: non-distended GI Palp: No abdominal tenderness and No Guarding due to palpation present (GI) Auscultation: normal bowel sounds Objective Data Vital Signs Vital Signs: Vital Signs - 24 hr 12/03/19 08:00 12/03/19 09:01 12/03/19 10:00 Temperature Pulse Rate 78 76 64 Pulse Rate [Bilateral Pedal (Dorsalis Pedis) Palpation] 64 Respiratory Rate 14 16 Blood Pressure 150/71 H 140/78 Pulse Oximetry 100 99 12/03/19 12:00 12/03/19 13:15 12/03/19 13:17 Temperature Pulse Rate 67 50 L 58 L Pulse Rate [Bilateral Pedal (Dorsalis Pedis) Palpation] Respiratory Rate 12 14 Blood Pressure 115/53 L 132/94 H Pulse Oximetry 97 100 12/03/19 13:20 12/03/19 16:00 12/03/19 20:00 Temperature 97.6 F Pulse Rate 56 L 74 72 Pulse Rate [Bilateral Pedal (Dorsalis Pedis) Palpation] Respiratory Rate 16 Blood Pressure 121/56 L Pulse Oximetry 97 12/03/19 22:00 12/04/19 00:00 12/04/19 04:00 Temperature 98.4 F Pulse Rate 64 55 L 54 L Pulse Rate [Bilateral Pedal (Dorsalis Pedis) Palpation] Respiratory Rate 18 Blood Pressure 130/61 Pulse Oximetry 95 12/04/19 06:00 Temperature 98 F Pulse Rate 73 Pulse Rate [Bilateral Pedal (Dorsalis Pedis) Palpation] Respiratory Rate 18 Blood Pressure 155/82 H Pulse Oximetry 92 Intake/Output Intake/Output: Intake & Output 12/01/19 12/02/19 12/03/19 12/04/19 23:59 23:59 23:59 23:59 Intake Total 1740 150 Output Total 3500 600 Balance -1760 -450 Meds/Results Medications: Active Medications Generic Name Dose Route Start Last Admin Trade Name Freq PRN Reason Stop Dose Admin Aspirin 81 mg 12/03/19 09:00 12/03/19 09:00 Aspirin Ec PO 81 mg DAILY FRIEDA Administration Finasteride 5 mg 12/03/19 09:00 12/03/19 09:00 Proscar PO 5 mg DAILY FRIEDA Administration Losartan Potassium 100 mg 12/03/19 09:00 12/03/19 09:00 Cozaar PO 100 mg DAILY FRIEDA Administration Morphine Sulfate 1 mg 12/02/19 18:48 12/04/19 06:05 Morphine Sulfate Inj IV PUSH 1 mg Q2H PRN Administration Pain Rated 4-6 Nebivolol 40 mg 12/03/19 09:00 12/03/19 09:01 Bystolic PO 40 mg DAILY FRIEDA Administration Oxybutynin Chloride 5 mg 12/03/19 22:00 12/04/19 06:04 Ditropan PO 5 mg Q8H FRIEDA Administration Pantoprazole Sodium 40 mg 12/02/19 21:00 12/03/19 21:43 Protonix PO 40 mg Q12HR FRIEDA Administration Pramipexole Dihydrochloride 0.5 mg 12/02/19 21:00 12/03/19 21:43 Mirapex PO 0.5 mg HS FRIEDA Administration Pravastatin Sodium 10 mg 12/03/19 09:00 12/03/19 09:00
[2019-12-04] MEDS: TICAGRELOR 90 MG TABLET PO ×2 (08:18→20:45)
[2019-12-04] MEDS: TAMSULOSIN HCL 0.4 MG CAPSULE PO (08:18)
[2019-12-04] MEDS: FINASTERIDE 5 MG TABLET PO (08:18)
[2019-12-04] MEDS: ASPIRIN 81 MG ENTERIC TABLET PO (08:18)
[2019-12-04] MEDS: LOSARTAN POTASSIUM 100 MG TABLET PO (08:18)
[2019-12-04] MEDS: MAGNESIUM CITRATE 300 ML BTL 150 ML PO (08:18)
[2019-12-04] MEDS: PANTOPRAZOLE 40 MG TABLET PO ×2 (08:18→20:45)
[2019-12-04] MEDS: PRAVASTATIN SODIUM 10 MG TABLET PO (08:18)
--- NOTE | 2019-12-04 13:12 | PM.PNCARD ---
Progress Note: A&P Assessment and Plan (1) CAD (coronary artery disease): Code(s): I25.10 - Atherosclerotic heart disease of [place] coronary artery without angina pectoris Status: Acute Assessment and Plan: Post CAYDEN to the LAD 12/02/2019. No chest discomfort, shortness of breath, orthopnea, PND, lightheadedness or palpitations. Right groin site without swelling or bleeding. Discussed how to get in and out of bed. Only needs to put pressure on cath site if strains. Complication of hematuria after Piña was inserted. (2) Gross hematuria: Code(s): R31.0 - Gross hematuria Status: Acute Assessment and Plan: Urology management appreciated. CBI off at this time. was hoping to get the Piña out today. H&H stable. Will continue to monitor renal function as well as H&H. Additional Plan He does not feel that he will be able to go home today as he feels very weak. Encouraged to be up in the chair more but is reluctant as when he moves he has a bladder spasm. PO fluids encouraged. Initiate SCD. Plan discussed Dr. Dumont [id number] 12/04/2019 Subjective Date/time seen: 12/04/19 13:12 Interval history: Follow-up for: Coronary artery disease status post drug-eluting stent to LAD 12/02/2019. Gross hematuria post Piña insertion 12/02/2019 currently with CBI. Date of service: 12/04/2019 Subjective: No chest discomfort, shortness of breath or palpitations. Lightheaded yesterday with episodes of bradycardia with bladder pain. Constipated most likely from morphine. Has had small bowel movement thus far from the Mag citrate Review of Systems Constitutional: Constitutional: Reports fatigue and Denies headache(s) Eyes: Eyes: Denies blurry vision ENT: Reports Normal hearing present and Denies headache(s) Cardiovascular: Cardiovascular: Denies chest pain, Denies pedal edema, Denies lightheadedness, Denies palpitations and Denies dyspnea Respiratory: Respiratory: Denies cough and Denies dyspnea Gastrointestinal: Gastrointestinal: Denies abdominal pain and Reports constipation Genitourinary: Genitourinary: Reports hematuria (CBI off. Some bloody urine noted in Piña) and Reports other (Bladder spasms) Musculoskeletal: Musculoskeletal: Denies back pain and Denies numbness Integumentary/Breasts: Skin/Breast: Denies unusual bruising Neurologic: Reports Normal hearing present, Denies headache(s) and Denies numbness Psychiatric: Psychiatric: Denies anxiety Endocrine: Endocrine: Denies cold intolerance, Reports fatigue and Denies palpitations Hematologic/Lymphatic: Hematologic/Lymphatic: Denies easy bleeding and Denies easy bruising Exam Const: General: cooperative and no acute distress Nutritional Appearance: overweight Orientation/consciousness: patient oriented x3 HENMT: Mouth: Yes moist mucous membranes Eyes: Pupils: Equal, round and reactive pupils present Neck: Neck: supple and no JVD Chest: Chest palpation & inspection: normal inspection of the chest Resp: Effort & Inspection: normal respiratory effort Auscultation: clear to auscultation bilaterally Cardio: Rate: regular rate Rhythm: regular rhythm Other: Right groin site without bleeding or swelling. GI: Auscultation: normal bowel sounds : Other: CBI off. Continues to have some blood from the meatus Urinary Catheter: Urinary Catheter: patent and draining and urine pink Skin: General skin exam: normal color Lesions: no lesions Rashes: no rashes Neuro: General: patient oriented x3 Cranial nerves: Yes Equal, round and reactive pupils present and Yes Normal hearing present Cognition (Neuro): normal cognition Speech: normal speech Extrem: General: normal to inspection and no pedal edema Right lower extremity: no edema Left lower extremity: no edema Objective Data Vital Signs Vital Signs: Vital Signs - 24 hr 12/03/19 13:15 12/03/19 13:1
[2019-12-04] MEDS: PRAMIPEXOLE 0.5 MG TABLET PO (20:45)
[2019-12-05] VITALS: PULSE 61
[2019-12-05 04:00] VITALS: PULSE 53
[2019-12-05 06:02] LABS: Hematocrit 36.8 % (42.0-52.0); Hemoglobin 13.2 g/dL (14.0-18.0)
[2019-12-05] MEDS: OXYBUTYNIN CHLORIDE 5 MG TABLET PO (06:07)
[2019-12-05 06:12] LABS: Blood Urea Nitrogen 25 mg/dL (9-20); Calcium 8.3 mg/dL (8.4-10.2); Carbon Dioxide 24 mmol/L (22-30); Chloride 104 mmol/L (98-107); Estimated CRCL calculation 66 ml/min; Estimated Glomerular Filt Rate > 60; Glucose 114 mg/dL (75-110); Potassium 3.4 mmol/L (3.4-5.0); Sodium 135 mmol/L (137-145)
[2019-12-05 06:27] VITALS: BP 137/78; PULSE 57; RESP 18; TEMP 37.1; O2SAT 96
--- NOTE | 2019-12-05 07:26 | WPDUROPN2 ---
Progress Note: A&P Assessment and Plan (1) BPH (benign prostatic hyperplasia): Code(s): N40.0 - Benign prostatic hyperplasia without lower urinary tract symptoms Status: Acute (2) Gross hematuria: Code(s): R31.0 - Gross hematuria Status: Acute Assessment and Plan: Catheter out / voiding trial this morning. Home this afternoon if voiding OK. Should remain on Finasteride and Tamsulosin at discharge - but NOT on Oxybutynin. Subjective Subjective Date/Time Seen: 12/05/19 07:26 Comfortable this morning. One episode of blader spasms last night. Urine clear. Review of Systems Cardiovascular: Cardiovascular: Denies chest pain, Denies lightheadedness, Denies palpitations and Denies dyspnea Respiratory: Respiratory: Denies dyspnea Gastrointestinal: Gastrointestinal: Denies diarrhea, Denies nausea and Denies vomiting Genitourinary: Genitourinary: Denies hematuria and Denies dysuria Endocrine: Endocrine: Denies palpitations Exam Const: General: no acute distress Resp: Effort & Inspection: normal respiratory effort GI: Inspection: non-distended GI Palp: No abdominal tenderness and No Guarding due to palpation present (GI) Auscultation: normal bowel sounds Objective Data Vital Signs Vital Signs: Vital Signs - 24 hr 12/04/19 08:00 12/04/19 12:00 12/04/19 14:00 Temperature 98.1 F Pulse Rate 56 L 66 64 Respiratory Rate 18 Blood Pressure 124/56 L Pulse Oximetry 96 12/04/19 16:00 12/04/19 20:00 12/04/19 21:58 Temperature 97.6 F Pulse Rate 63 64 63 Respiratory Rate 18 Blood Pressure 123/68 Pulse Oximetry 94 12/05/19 00:00 12/05/19 04:00 12/05/19 06:27 Temperature 98.8 F Pulse Rate 61 53 L 57 L Respiratory Rate 18 Blood Pressure 137/78 Pulse Oximetry 96 Intake/Output Intake/Output: Intake & Output 12/02/19 12/03/19 12/04/19 12/05/19 23:59 23:59 23:59 23:59 Intake Total 1740 800 Output Total 3500 2350 Balance -1760 -1550 Meds/Results Medications: Active Medications Generic Name Dose Route Start Last Admin Trade Name Freq PRN Reason Stop Dose Admin Aspirin 81 mg 12/03/19 09:00 12/04/19 08:18 Aspirin Ec PO 81 mg DAILY FRIEDA Administration Finasteride 5 mg 12/03/19 09:00 12/04/19 08:18 Proscar PO 5 mg DAILY FRIEDA Administration Losartan Potassium 100 mg 12/03/19 09:00 12/04/19 08:18 Cozaar PO 100 mg DAILY FRIEDA Administration Morphine Sulfate 1 mg 12/02/19 18:48 12/04/19 20:46 Morphine Sulfate Inj IV PUSH 1 mg Q2H PRN Administration Pain Rated 4-6 Nebivolol 20 mg 12/05/19 09:00 Bystolic PO DAILY FRIEDA Oxybutynin Chloride 5 mg 12/03/19 22:00 12/05/19 06:07 Ditropan PO 5 mg Q8H FRIEDA Administration Pantoprazole Sodium 40 mg 12/02/19 21:00 12/04/19 20:45 Protonix PO 40 mg Q12HR FRIEDA Administration Pramipexole Dihydrochloride 0.5 mg 12/02/19 21:00 12/04/19 20:45 Mirapex PO 0.5 mg HS FRIEDA Administration Pravastatin Sodium 10 mg 12/03/19 09:00 12/04/19 08:18 Pravastatin Sodium PO 10 mg DAILY FRIEDA Administration Tamsulosin HCl 0.4 mg 12/02/19 16:15 12/04/19 08:18 Flomax PO 0.4 mg QAM FRIEDA Administration Ticagrelor 90 mg 12/02/19 21:00 12/04/19 20:45 Brilinta PO 90 mg Q12HR FRIEDA Administration Labs Labs: Laboratory Results - last 24 hr 12/05/19 12/05/19 05:44 05:44 Hgb 13.2 L Hct 36.8 L Sodium 135 L Potassium 3.4 Chloride 104 Carbon Dioxide 24 BUN 25 H Creatinine 1.10 Estim Creat Clear Calc 66 Estimated GFR > 60 Glucose 114 H Calcium 8.3 L
[2019-12-05 08:00] VITALS: PULSE 53
[2019-12-05] MEDS: LOSARTAN POTASSIUM 100 MG TABLET PO (08:31)
[2019-12-05] MEDS: FINASTERIDE 5 MG TABLET PO (08:31)
[2019-12-05] MEDS: ASPIRIN 81 MG ENTERIC TABLET PO (08:31)
[2019-12-05] MEDS: TICAGRELOR 90 MG TABLET PO (08:31)
[2019-12-05 08:32] VITALS: PULSE 62
[2019-12-05] MEDS: PANTOPRAZOLE 40 MG TABLET PO (08:32)
[2019-12-05] MEDS: NEBIVOLOL HCL 5 MG TABLET 20 MG PO (08:32)
[2019-12-05] MEDS: TAMSULOSIN HCL 0.4 MG CAPSULE PO (08:33)
[2019-12-05] MEDS: PRAVASTATIN SODIUM 10 MG TABLET PO (08:33)
[2019-12-05 12:00] VITALS: PULSE 59
--- NOTE | 2019-12-05 12:45 | PM.PNCARD ---
Progress Note: A&P Additional Plan 79-year-old gentleman with coronary artery disease status post PCI to the mid LAD relatively large caliber artery with a 4 mm drug-eluting stent post dilated with a 5 mm balloon. He is stable for discharge today. I hospitalization was extended for another day because of the hematuria that was the result of insertion of a Piña catheter while he was anticoagulated and on dual anti-platelet therapy. Will discharge to home follow-up will be with Dr. Aguila Time Spent With Patient Time with patient: 15 - 25 minutes Subjective Date/time seen: Date of service: 12/05/19 12:45 Interval history: Follow-up visit in 79-year-old gentleman with coronary artery disease who underwent PCI to the mid LAD 2 days ago. Patient was kept in the hospital another day because of gross hematuria following Piña catheter insertion in the setting of dual anti-platelet therapy. He feels well sitting in the chair out of bed today he has been voiding without difficulty Exam Const: General: comfortable and no acute distress HENMT: Mouth: Yes moist mucous membranes Eyes: Sclera: sclerae normal Pupils: Equal, round and reactive pupils present Neck: Neck: supple and no JVD Thyroid: thyroid normal Resp: Effort & Inspection: normal respiratory effort Auscultation: clear to auscultation bilaterally Cardio: Rate: regular rate Rhythm: regular rhythm Other: No audible gallop or murmur or rub GI: Auscultation: normal bowel sounds Skin: General skin exam: normal color Neuro: Cognition (Neuro): normal cognition Extrem: General: normal to inspection Other: Right groin puncture site looks unremarkable no ecchymosis hematoma, normal pulse Objective Data Vital Signs Vital Signs: Vital Signs - 24 hr 12/04/19 14:00 12/04/19 16:00 12/04/19 20:00 Temperature 36.7 C Pulse Rate 64 63 64 Respiratory Rate 18 Blood Pressure 124/56 L Pulse Oximetry 96 12/04/19 21:58 12/05/19 00:00 12/05/19 04:00 Temperature 36.4 C Pulse Rate 63 61 53 L Respiratory Rate 18 Blood Pressure 123/68 Pulse Oximetry 94 12/05/19 06:27 12/05/19 08:32 Temperature 37.1 C Pulse Rate 57 L 62 Respiratory Rate 18 Blood Pressure 137/78 Pulse Oximetry 96 Intake/Output Intake/Output: Intake & Output 12/02/19 12/03/19 12/04/19 12/05/19 23:59 23:59 23:59 23:59 Intake Total 1740 800 640 Output Total 3500 6123 831 Balance -7612 -7407 -611 Meds/Results Medications: Active Medications Generic Name Dose Route Start Last Admin Trade Name Freq PRN Reason Stop Dose Admin Aspirin 81 mg 12/03/19 09:00 12/05/19 08:31 Aspirin Ec PO 81 mg DAILY FRIEDA Administration Finasteride 5 mg 12/03/19 09:00 12/05/19 08:31 Proscar PO 5 mg DAILY FRIEDA Administration Losartan Potassium 100 mg 12/03/19 09:00 12/05/19 08:31 Cozaar PO 100 mg DAILY FRIEDA Administration Morphine Sulfate 1 mg 12/02/19 18:48 12/04/19 20:46 Morphine Sulfate Inj IV PUSH 1 mg Q2H PRN Administration Pain Rated 4-6 Nebivolol 20 mg 12/05/19 09:00 12/05/19 08:32 Bystolic PO 20 mg DAILY FRIEDA Administration Pantoprazole Sodium 40 mg 12/02/19 21:00 12/05/19 08:32 Protonix PO 40 mg Q12HR FRIEDA Administration Pramipexole Dihydrochloride 0.5 mg 12/02/19 21:00 12/04/19 20:45 Mirapex PO 0.5 mg HS FRIEDA Administration Pravastatin Sodium 10 mg 12/03/19 09:00 12/05/19 08:33 Pravastatin Sodium PO 10 mg DAILY FRIEDA Administration Tamsulosin HCl 0.4 mg 12/02/19 16:15 12/05/19 08:33 Flomax PO 0.4 mg QAM FRIEDA Administration Ticagrelor 90 mg 12/02/19 21:00 12/05/19 08:31 Brilinta PO 90 mg Q12HR FRIEDA Administration Labs Labs: Laboratory Results - last 24 hr 12/05/19 12/05/19 05:44 05:44 Hgb 13.2 L Hct 36.8 L Sodium 135 L Potassium 3.4 Chloride 104 Carbon Dioxide 24 BUN 25 H Creatinine 1.10 Estim Creat Clear Calc 66 Estimated GF
--- NOTE | 2019-12-05 12:48 | PM.DS ---
DS: Diagnosis Admitting Diagnosis Admitting Diagnosis: Gross hematuria Coronary artery disease with PCI to the mid LAD DS: Summary Hospital Course Reason for hospitalization: Diagnostic left heart catheterization because of abnormal coronary CT Hospital Course: This is a 79-year-old patient referred for catheterization by Dr. Aguila. The patient has a history of some FLORES but no constantine anginal-type chest pain. He underwent catheterization because he had a coronary CT done elsewhere which was reported as showing evidence of significant mid LAD lesion. Catheterization was done on the day of admission by Dr. Aguilera. The patient was found to have significant stenosis in the mid LAD as well as mild plaquing throughout the coronary arteries. PCI was recommended which was done successfully with a 4 mm Vivintiro drug-eluting stent which was post dilated with a 5 mm noncompliant balloon. The patient had no complications of the procedure other than he developed gross hematuria following Piña catheter insertion which was the result of the Piña trauma in the setting of dual anti-platelet therapy and procedural anticoagulation. For this reason he was not discharged and was kept in the hospital. Urology consult was obtained and a he had a Piña catheter left in until this morning. The catheter was removed this morning he is ambulating and voiding without difficulty. He appears to be a good candidate for discharge today. Status at Discharge Functional status at discharge: independent ambulation Overall status at discharge: patient is back to baseline Time Spent with Patient Time attestation: Total time spent providing and/or coordinating discharge services: Time spent: Less than 30 minutes Exam Const: General: comfortable and no acute distress HENMT: Mouth: Yes moist mucous membranes Eyes: Sclera: sclerae normal Pupils: Equal, round and reactive pupils present Neck: Neck: supple and no JVD Thyroid: thyroid normal Resp: Effort & Inspection: normal respiratory effort Auscultation: clear to auscultation bilaterally Cardio: Rate: regular rate Rhythm: regular rhythm Other: No murmur no gallop no rub GI: GI Palp: Yes Soft to palpation Auscultation: normal bowel sounds Skin: General skin exam: normal color Other: Right groin puncture site looks fine no hematoma no bruit normal pulses Extrem: General: normal to inspection DS: Data Data Completed and Pending Labs on day of discharge: Labs from last 24 hours 12/05/19 12/05/19 05:44 05:44 Hgb 13.2 L Hct 36.8 L Sodium 135 L Potassium 3.4 Chloride 104 Carbon Dioxide 24 BUN 25 H Creatinine 1.10 Estim Creat Clear Calc 66 Estimated GFR > 60 Glucose 114 H Calcium 8.3 L Discharge Plan Discharge Attending physician on discharge: Mickey Shea Consulting providers: Maik Jane Discharging Clinician: Mickey Shea Patient Disposition: Home, Self-Care Activity: other - see discharge instructions Diet: heart healthy Wound Care Instructions: other - see discharge instructions Discharge Instructions: ACTIVITY: No driving until you are no longer having bladder spasms. No lifting, pushing or pulling more than 10 pounds for 1 week. No strenuous exercise or activity for 1 week. May shower but no tub baths or swimming pool for 1 week. Avoid commercial hot tubs. They are too hot DO NOT STOP YOUR MEDICATIONS! ONLY YOUR ULTRASOUND TECH CAN STOP THE FOLLOWING MEDICATIONS: Aspirin Brilinta Pravastatin Losartan Bystolic PLEASE CALL THE OFFICE IF THESE MEDICATIONS NEED TO BE STOPPED Keep your stent card in your wallet at all times Read food labels for high levels of sodium, no added salt, avoid fried foods, eat more fruits and vegetables. Stay hydrated. He should be drinking at least 2 L of fluid per day. If you have chest pain unrelieved by nitroglycerin call 911 immediately If you miss one dose of Brilinta take a table
== END 2019-12-05 14:30 | disposition home or self-care (01) ==
LOC: ANHCATHLAB 09:56 → ANH3MEDSUR 14:07 → ANHCPC 12-08 10:54
PROVIDERS: Nurse Practitioner Adult Health; Admitting Provider Internal Medicine Cardiovascular Disease; PCP Internal Medicine; Visit Provider Specialist
PROC: 4A023N7 Measurement of Cardiac Sampling and Pressure, Left Heart, Percutaneous Approach (ICD-10-PCS; CPT 93452; principal; 2019-12-02 10:00)
DX: I25.10 Atherosclerotic heart disease of native coronary artery without angina pectoris (principal); I10 Essential (primary) hypertension; E78.5 Hyperlipidemia, unspecified; N32.89 Other specified disorders of bladder; R31.0 Gross hematuria; R33.8 Other retention of urine; K59.00 Constipation, unspecified; N40.0 Benign prostatic hyperplasia without lower urinary tract symptoms; Z82.49 Family history of ischemic heart disease and other diseases of the circulatory system
CPT/HCPCS: 36415; 80048; 80053; 85014; 85018; 85025; 85027; 85610; 92978; 93005; 93458; A9270; C1725; C1753; C1760; C1769; C1874; C1887; C1894; C9600; G0269; G0378; J0583; J1644; J2250; J2270; J3010; J7030; J7040

== ENCOUNTER 2020-10-13 09:00 | Outpatient (RCR) | payer MEDICARE, SELFPAY ==
--- NOTE | 2020-08-25 16:01 | PTOPEVAL ---
INITIAL PHYSICAL THERAPY EVALUATION and PLAN OF CARE Thank you for referring Stephen Sol to [facility].? Stephen is scheduled to be seen for physical therapy? 2x/week for 4 weeks. Please review, sign, date and return this plan of care AGA. I agree with and certify that the following plan of care is medically necessary. Referring Physician Date Admitting Provider: Attending Provider: George Martin, Referring Provider: *PT Outpatient Evaluation Start: 08/25/20 14:42 Freq: Status: Active Protocol: Document 08/25/20 14:35 TYE (Rec: 08/25/20 16:00 TYE [id number]) Therapy Assessment Status Assessment Status Assessment Status Evaluation Outpatient Past Medical History Past Medical History Source of Past Medical History Recalled from Previous Visit, Confirmed with Patient/Family Neurological History Hx Neurological Disorders No Significant History Cardiovascular History Hx Angina Yes Hx Chest Pain Yes Hx Coronary Stent Yes: November 2019 Hx Hypertension Yes Respiratory History Hx Respiratory Disorders No Significant History Gastrointestinal History Hx Gastroesophageal Reflux Disease Yes Genitourinary History Hx Genitourinary Disorders No Significant History Musculoskeletal History Hx Arthritis Yes: L knee, needs R carpal tunnel surgery Hematological History Hx Hematological Disorders No Significant History Endocrine History Hx Endocrine Disorders No Significant History HEENT History Hx HEENT Disorders No Significant History Integumentary History Hx Skin Disorders No Significant History Reproductive History Hx Reproductive Disorders No Significant History Psychosocial History Hx Psychiatric Disorders No Significant History Pain History Has Past Pain Affected Your Daily Life Yes Anesthesia History Hx Anesthesia Reactions No Significant History Other History Hx Cancer Yes: melanoma-L side of neck Evaluation Information Problem Diagnosis Neck pain - mainly L side Onset 4-4.5 months Subjective Information Woke up one morning - there Query Text:As Reported By Patient/ the discomfort was . [place] Family like a shooting electric shock - stays along hair line - goes behind ear - points to mastoid process as well. If lies down a certain way - increase in pain. Likes to sleep on sides or stomach. Flattened pillow. Heat doesn' t help - ice helps. Sitting -
--- NOTE | 2020-09-15 15:19 | PTOPEVAL ---
PHYSICAL THERAPY RE-EVALUATION and UPDATED PLAN OF CARE Thank you for referring Stephen Sol to [facility].? Stephen has made progress towards goals set but has not fully reached all of them. I recommending that he continue with PT 2x/week for 4 weeks. Please review, sign, date and return this plan of care AGA. I agree with and certify that the following plan of care is medically necessary. Referring Physician Date Admitting Provider: Attending Provider: George Martin, Referring Provider: *PT Outpatient Evaluation Start: 08/25/20 14:42 Freq: Status: Active Protocol: Document 09/15/20 12:31 TYE (Rec: 09/15/20 13:31 TYE [id number]) Therapy Assessment Status Assessment Status Assessment Status Re-evaluation Evaluation Information Problem Subjective Information Stephen states that everyday Query Text:As Reported By Patient/ feels a little better. Family Sleeping is better - only disturbed 3 times last night. About 4 episodes of L ear/ neck pain thus far today reported. He states that the exercises are going easier. His goal is for the pain to go away all together. Pain Assessment Timing of Pain Assessment Timing of Pain Assessment Pre-Treatment Pain Scale Pain Scale Used Numeric (1 - 10) Self Report Pain Assessment Left Neck Reported Pain Level 0 Lowest Pain Intensity 0 Greatest Pain Intensity 5 Pain Score Pain Score 0: Self Report Cervical and Lumbar ROM Cervical ROM Cervical Flexion (0-60) 50 Query Text:Active in Degrees Cervical Extension (0-70) 40 Query Text:Active in Degrees Cervical Lateral Flexion Right (0-50) 15 Query Text:Active in Degrees Cervical Lateral Flexion Left (0-50) 15 Query Text:Active in Degrees Cervical Rotation Right (0-90) 38 Query Text:Active in Degrees Cervical Rotation Left (0-90) 38 Query Text:Active in Degrees Cervical ROM Comments increase in L sided nerve symptoms with rotation L Cervical and Lumbar Muscle Testing Cervical Muscle Testing Deep Cervical Flexion able to hold 1 min 33 sec Palpation Assessment Palpation Palpation P-A glides to cervical spine - decreased mobility present in general, most limited at C7. Some provocation of L sided symptoms with P-A mobs. Lateral side gliding - increase ease today - minimal
--- NOTE | 2020-10-11 09:19 | PCPTNOTE ---
Patient called & cancelled scheduled appointment this date due to being quarantined for carpal tunnel surgery 10/12/20.
--- NOTE | 2020-10-13 11:40 | PTOPEVAL ---
PHYSICAL THERAPY DISCHARGE SUMMARY Thank you for referring Stephen Sol to [facility] [place] [facility] [place] Stephen has received 15 treatments in physical therapy and is independent with his HEP. Most goals have been met. Discussion was had if the L sided cervical symptoms return at a more intense level, to contact Dr. Martin and ask about resuming PT. Thank you for this referral. Stephen was very enjoyable to work with. I agree with Stephen's discharge from PT. Referring Physician Date Admitting Provider: Attending Provider: George Martin, Referring Provider: *PT Outpatient Evaluation Start: 08/25/20 14:42 Freq: Status: Active Protocol: Document 10/13/20 09:06 TYE (Rec: 10/13/20 10:02 TYE [email or web address]) Therapy Assessment Status Assessment Status Assessment Status Discharge Evaluation Information Problem Subjective Information Stephen states that sleeping is Query Text:As Reported By Patient/ going well. Doing much better Family with the L cervical symptoms - but will still get it. Did have an episode yesterday with positioning for R carpal tunnel surgery. Aware of HEP. Pain Assessment Timing of Pain Assessment Timing of Pain Assessment Pre-Treatment Pain Scale Pain Scale Used Numeric (1 - 10) Self Report Pain Assessment Left Neck Reported Pain Level 0 Other Pain Description electrical type of sensation, vibrates as well Lowest Pain Intensity 0 Greatest Pain Intensity 5 Pain Score Pain Score 0: Self Report Cervical and Lumbar ROM Cervical ROM Cervical Flexion (0-60) 50 Query Text:Active in Degrees Cervical Extension (0-70) 40 Query Text:Active in Degrees Cervical Lateral Flexion Right (0-50) 15 Query Text:Active in Degrees Cervical Lateral Flexion Left (0-50) 20 Query Text:Active in Degrees Cervical Rotation Right (0-90) 45 Query Text:Active in Degrees Cervical Rotation Left (0-90) 50 Query Text:Active in Degrees Cervical ROM Comments increase in L sided nerve symptoms with rotation L Cervical and Lumbar Muscle Testing Cervical Muscle Testing Deep Cervical Flexion able to hold 1 min 33 sec Palpation Assessment Palpation Palpation Decreased P-A mobility T1,C7, C6 - very little trigger of L lateral cervical symptoms today Lateral glides C6-5-4 - symmetrical - no trigger on L lateral cervical symptoms. Mild L lateral cervical soft
== END 2020-11-11 08:44 | disposition home or self-care (01) ==
LOC: ANHHIPT 09:00
PROVIDERS: PCP Internal Medicine; Visit Provider Internal Medicine
DX: M54.2 Cervicalgia (principal)
CPT/HCPCS: 97110; 97140; 97162

== ENCOUNTER 2024-04-25 09:53 | Outpatient (CLI) | payer MEDICARE, SELFPAY ==
--- NOTE | ~2024-04-25 | MMUS_ITS ---
EXAMINATION: MM diagnostic marcello LT w sarmad, US breast LT limited HISTORY: Left breast pain for 6 months. TECHNIQUE: Additional 3-D tomosynthesis images of the left breast were performed with comparison righ t MLO view and synthetic 2-D images were generated. CAD analysis was submitted and interpreted. High resolution Limited left breast ultrasound was performed with comparison right sonographic images. COMPARISON: None BREAST PARENCHYMAL COMPOSITION: Not dense: There are scattered areas of fibroglandular density. FINDINGS: MAMMOGRAPHIC FINDINGS: There is asymmetric gynecomastia, left greater than right. No suspicious masses, calcifications or ar chitectural distortion in either breast to suggest malignancy. ULTRASOUND: Limited left breast ultrasound: Normal heterogeneous echotexture without focal solid or cystic mass. IMPRESSION: 1. No evidence for malignancy in the left breast. Benign gynecomastia. 2. Recommend follow-up clinical management for gynecomastia. BI-RADS Category 2: Benign finding(s). Reviewed, dictated and finalized at location B. IMPRESSION: 1. No evidence for malignancy in the left breast. Benign gynecomastia. 2. Recommend follow-up clinical management for gynecomastia. BI-RADS Category 2: Benign finding(s).
== END 2024-04-25 09:54 | disposition home or self-care (01) ==
LOC: ANHIMG 09:54
PROVIDERS: PCP Physician Assistant Medical; Visit Provider Physician Assistant Medical
DX: N62 Hypertrophy of breast (principal)
CPT/HCPCS: 76642; 77061; 77065; G0279

== ENCOUNTER 2024-05-31 12:36 | Emergency (ER) | payer MEDICARE, SELFPAY ==
[2024-05-31 12:48] VITALS: BP 176/72; PULSE 62; RESP 18; TEMP 36.8; O2SAT 97
[2024-05-31 12:50] VITALS: BP 176/72; PULSE 62; RESP 18; TEMP 36.8; O2SAT 97
--- NOTE | 2024-05-31 13:02 | ED.SKABFB ---
HPI - Skin/Abscess/Foreign Bdy General Chief complaint: Skin/Abscess/Foreign Body Stated complaint: foot infection Source: patient Mode of arrival: ambulatory Limitations: no limitations History of Present Illness HPI narrative: 84 y/o male presented for c/o right foot pain and swelling to the bottom of the right foot, worsening since yesterday. He reports a chronic ulcer at the site, for which he follows with business banking manager, has appointment in 2 days. Pain is worse when walking. denies drainage to the site. Has not taken anything for pain. Related Data Home Medications Medication Instructions Recorded Confirmed ascorbate calcium (vitamin C) 500 500 mg PO DAILY 12/11/19 05/31/24 mg tablet multivitamin 1 tablet PO DAILY 12/11/19 05/31/24 saw palmetto 160 mg capsule 160 mg PO BID 11/30/20 05/31/24 Allergies Allergy/AdvReac Type Severity Reaction Status Date / Time No Known Allergies Allergy Unknown Verified 05/31/24 12:49 Review of Systems Review of Systems: CONSTITUTIONAL: Denies body aches, fever, chills, or sweats. EYES: Denies visual changes, redness, or discharge. ENT: Denies rhinorrhea, congestion CARDIOVASCULAR: Denies chest pain, palpitations, or edema. RESPIRATORY: Denies cough or dyspnea. GASTROINTESTINAL: Denies abdominal pain, nausea, vomiting, or diarrhea. SKIN: reports redness and wound right foot MUSCULOSKELETAL: Denies back pain, joint pain, or myalgia. NEUROLOGIC: Denies headache, numbness, tingling, or weakness. [facility] Past Medical History Medical History Edema of both ankles Encounter for screening for malignant neoplasm of prostate HTN (hypertension) Hyperglycemia GHULAM (obstructive sleep apnea) no CPAP use Surgical History Surgical History H/O colonoscopy [address] Dr. Cuevas? History of appendectomy History of heart artery stent 12/02/19- mid LAD placement Family History Family History Sibling Acute myocardial infarction Father Cancer Mother Cancer Social History Social History Smoking status: Former smoker Alcohol intake: current Substance use: never Lack of Transportation: No Lack of Food: Never True Current Housing: I Have Housing Concerned About Future Housing: No Difficulty Paying Gas/Electric Bills: No Difficulty Paying for Meds: No Currently Unemployed: No Education: Don't Know Difficulty w/ Childcare or Family Care: No Living arrangements: with family Occupation/Education: retired Gender identity (if verbalized by the patient): Male Agree to blood products: Yes Comments At time of signature, I have reviewed and agree with nursing past medical, surgical, social and family history unless otherwise noted. Please see nursing chart for further information. There is no relevant family history pertinent to the presenting complaint Exam Narrative: GENERAL: Well-appearing EYES: conjunctivae clear, and EOMI. ENT: Mucous membranes moist. Oropharynx without edema, erythema or lesions. NECK: Supple. No lymphadenopathy CHEST: Clear to auscultation. HEART: Regular rate and rhythm. SKIN: Warm, dry. Right plantar foot at 1st MTP with subcutaneous ulcerated area, skin is intact, approx 1.5 cm area of darkened discoloration, the center has superficial layer of skin removed, no drainage or fluctuance. Site surrounding ulcer is tender, swelling extends to 1st toe. No tenderness, swelling or discoloration to the dorsal surface of the foot. Pedal pulses strong and equal bilaterally. cap refill <3seconds. ROM intact. Left plantar foot at 1st MTP with ulcerated area approx .5cm diameter; nontender, no induration or drainage. Skin intact. NEURO: Alert and oriented x3. Course Course Emergency Course: Patient is aware of
== END 2024-05-31 13:09 | disposition home or self-care (01) ==
PROVIDERS: Emergency Provider Nurse Practitioner Family
DX: L03.115 Cellulitis of right lower limb (principal); L97.519 Non-pressure chronic ulcer of other part of right foot with unspecified severity; Z87.891 Personal history of nicotine dependence; I10 Essential (primary) hypertension; G47.33 Obstructive sleep apnea (adult) (pediatric); Z95.5 Presence of coronary angioplasty implant and graft
CPT/HCPCS: 99213; G0463

== ENCOUNTER 2025-02-02 09:44 | Outpatient (CLI) | payer MEDICARE, SELFPAY ==
--- NOTE | ~2025-02-02 | XR_ITS ---
XR foot LT min 3V Ordering provider: Pablo Boswell Jr., DPM History: . DIABETIC ULCER LEFT FOOT MEDIAL 1ST LT DIGIT . Comparison: None. FINDINGS: BONES: No acute fracture or dislocation. JOINT SPACES: Narrowing of the proximal and distal interphalangeal joints. Osteoarthritic changes of the first tarsometatarsal joint. No tarsal coalition. SOFT TISSUES: Normal. Calcaneal spur. IMPRESSION: No acute osseous abnormality left foot. Polyarticular osteoarthritic changes. Reviewed, dictated and finalized at location A.
--- OUTSIDE RECORDS SUMMARY | 2025-02-02 10:16 | XMS_ITS | Clinical Summary ---
Author Organization [facility] [address] Address [address] [place] [address] Care Team Providers Care Toe Closing Machine Tender Name Role Phone Ting Hemphill Primary Care Provider [phone] Allergies Active Allergy Reactions Criticality Noted Date Comments Amlodipine Swelling Medium 10/16/2024 Spironolactone Swelling Medium 10/16/2024 Sulfa (Sulfonamide Antibiotics) Medications irbesartan (AVAPRO) 300 mg tabletIndicatio ns:hypertension Take 1 tablet (300 mg total) by mouth daily Active tamsulosin (FLOMAX) 0.4 mg extended release capsule Take 1 capsule (0.4 mg total) by mouth daily Active pravastatin (PRAVACHOL) 10 mg tablet Take 1 tablet (10 mg total) by mouth daily Active Bystolic 20 mg tablet Take 1 tablet (20 mg total) by mouth daily 0 Active aspirin 81 mg enteric coated tablet Take 1 tablet (81 mg total) by mouth daily 0 Active finasteride (PROSCAR) 5 mg tablet Take 1 tablet (5 mg total) by mouth daily Active furosemide (LASIX) 20 mg tablet Take 1 tablet (20 mg total) by mouth filter washer and presser before breakfast 0 Active pramipexole (MIRAPEX) 0.5 mg tablet Take 1 tablet (0.5 mg total) by mouth nightly Active acetaminophen (TYLENOL) 325 mg tabletIndicatio ns:Fever,Pain Take 2 tablets (650 mg total) by mouth every 6 (six) hours as needed for pain 100 tablet 5 Active doxycycline (VIBRAMYCIN) 100 mg capsule Take 1 tablet/capsule (100 mg total) by mouth 2 (two) times a day 8 tablet/capsul e 5 Active amLODIPine (NORVASC) 5 mg tablet Take 1 tablet (5 mg total) by mouth daily 0 Active amoxicillin (AMOXIL) 875 mg tablet 875 MG ORALLY EVERY 12 HOURS 5 Active azithromycin (ZITHROMAX) 250 mg tablet Take 2 tablets by mouth on day one then 1 daily for four days. 4 Active benzonatate (TESSALON) 100 mg capsule TAKE 1 CAPSULE BY MOUTH 3 TIMES A DAY NEEDED FOR COUGH 5 Active cefdinir (OMNICEF) 300 mg capsule Take 1 capsule (300 mg total) by mouth 2 (two) times a day 4 Active eplerenone (INSPRA) 25 mg tablet Take 1 tablet (25 mg total) by mouth daily 5 Active hydroCHLOROthia zide 12.5 mg tablet Take 1 tablet (12.5 mg total) by mouth filter washer and presser before breakfast Active ibuprofen 200 mg tab/cap Take 3 tablet/capsule (600 mg total) by mouth every 6 (six) hours as needed 5 Active losartan-hydroC HLOROthiazide (HYZAAR) 100-12.5 mg per tablet Take 1 tablet by mouth daily Active pantoprazole DR (PROTONIX) 40 mg EC tablet Take 1 tablet (40 mg total) by mouth daily Active celecoxib (CeleBREX) 200 mg capsule Take 1 capsule (200 mg total) by mouth daily 30 capsule 5 5 06/06/20 25 Active Active Problems Problem Noted Date Diagnosed Date Wrist swelling, right 10/17/2024 Assessment & Plan (10/18/2024 12:51 PM GRANT MANAGER): Likely in setting of cellulitis however on CT scan with osseous erosions. - Rheumatology consulted: Likely gout - UA level 4.2 - NO urate lowering therapy indicated for first attack - Provide patient with 3 pills of colchicine 0.6 mg to be taken within 12 hours of any new flare. - Outpatient follow up with rheumatology in 4 weeks Cellulitis of right arm 10/15/2024 Assessment & Plan (10/17/2024 3:00 PM GRANT MANAGER): 84 y.o. male with PMH including: CAD, HLD, HTN, BPH, restless legs who presented with recurrent swelling, pain and redness in the R wrist and hand. He was recently hospitalized 09/28-09/29 for R hand/forearm swelling and pain that developed after a fall on the ice 09/24. CT 09/27 showed fluid within the flexor tendon sheaths of the wrist and osteoarthritis. Treated for cellulitis with vancomycin and unasyn then cephalexin for 7d. He had improvement and seen in PRS clinic 10/03 where he was found to have pain in the thumb base and anatomic snuffbox without erythema. He then developed a few days of recurrent swelling, pain and redness in the wrist and hand he saw his PCP and got an IM injection (he couldn't remember) and advised to presented to ED. 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 Started on vanc then switched to linezolid with notable improvement in pain and swelling. Discussed CT findings with radiology who thought less likely compatible with infectious, but rather, inflammatory processes. Rheumatology consult pending to help clarify diagnosis. Recommendations: -Continue linezolid for now. -ID to continue to follow. Appreciate Rheum input. Assessment & Plan (10/18/2024 12:51 PM GRANT MANAGER): More likely recurrent cellulitis based on the timeline. Suspect strep vs staph. Physical exam did not suggest necrotizing fasciitis or compartment syndrome (no gas palpation, pain out of proportion, changes with pulse or sensation). Patient received 1 dose of vancomycin in the ED. Plan: -Since patient's symptoms started approximately 48 hours prior to admission, - Continue on linezolid - Plastic -> medical management - ID -> Discontinue linezolid and transition to PO doxycycline 100 mg BID plus cefadroxil 1 gm BID to complete course on discharge (ED 10/29/2024). -Pain control: tylenol, Ibuprofen TID. 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 -Plastics hand were consulted who recommended admission to medicine for IV antibiotics given cellulitis without concern for infectious flexor tenosynovitis. -Continue broad-spectrum IV antibiotics; change to oral antibiotics for a week on discharge. -Maintain splint, elevate right upper extremity -PT/OT. Per Plastic surgery patient is cleared to be discharged with a new splint on hand and follow-up with Plastic surgery as outpatient. -Pain control CAD (coronary artery disease) 09/28/2024 Assessment & Plan (10/15/2024 6:58 AM GRANT MANAGER): -Continue home asa Assessment & Plan (09/28/2024 4:17 PM GRANT MANAGER): History of coronary artery disease status post stenting 5 years ago Continue aspirin, beta brett, statin Hypertension, essential 09/28/2024 Assessment & Plan (10/15/2024 7:00 AM GRANT MANAGER): -Continue home irbesartan and bistolic. Hold lasix as patient appears to be euvolemic Assessment & Plan (09/28/2024 4:18 PM GRANT MANAGER): Continue home irbesartan, nebivolol, Lasix BPH (benign prostatic hyperplasia) 09/28/2024 Assessment & Plan (10/15/2024 6:58 AM GRANT MANAGER): -Continue home flomax and proscar Assessment & Plan (09/28/2024 4:18 PM GRANT MANAGER): Continue home tamsulosin, finasteride RLS (restless legs syndrome) 09/28/2024 Assessment & Plan (10/15/2024 6:59 AM GRANT MANAGER): -Continue home pramipexole. On chart patient was prescribed with tid dosing but patient only takes nightly Assessment & Plan (09/28/2024 4:18 PM GRANT MANAGER): Continue home pramipexole HLD (hyperlipidemia) 09/28/2024 Assessment & Plan (10/15/2024 7:00 AM GRANT MANAGER): -Continue home statin Assessment & Plan (09/28/2024 4:18 PM GRANT MANAGER): Continue home pravastatin Keratosis, senilis 11/08/2011 Atrophic scar 11/08/2011 Inflamed seborrheic keratosis 11/08/2011 Diabetes mellitus 08/23/2011 Metatarsalgia 08/23/2011 Pain of toe 08/23/2011 Acquired claw toe 08/23/2011 Encounters Date Type Department Care Team Description 12/17/2024 Telephone [facility] Rheumatology [address] [facility] [place] [phone] Gopal Newby, [facility] 11/24/2024 Results Follow-Up [facility] Rheumatology [facility] Medicine [facility] [place] [phone] Tristen Garland MD Uric acid, CBC with auto differential, Comprehensive metabolic panel 11/14/2024 2:45 PM GRANT MANAGER Lab [facility] Endocrinology Metabolism and Lipid [address] [place] [phone] Arthritis of moxlhozt-fqmlcrkes-o rapezoid joint of right hand 11/14/2024 1:30 PM GRANT MANAGER Office Visit [facility] Rheumatology [address] [facility] Medicine [facility] [place] [phone] Arthritis of opdnepwn-txkftvtog-i rapezoid joint of right hand (Primary Dx) 11/14/2024 Documentation [facility] Rheumatology [address] [facility] Medicine [facility] [place] [phone] Remi Benitez Case Management- Basic Needs; PHV 11/13/2024 Telephone [facility] Rheumatology [address] [facility] 5[address] [place] [address] [place] [address] Remi Benitez Case Management- Basic Needs; PHV from Last 3 Months Social History Tobacco Use Types Packs/Day Years Used Date Smoking Tobacco: Never Tobacco Cessation:Counseling Given: Not Answered Personal Safety Answer Date Recorded Have you ever been in or are you currently in a harmful physical or emotional relationship or is someone making you feel afraid or unsafe? Denies 10/14/2024 Sex and Gender Information Value Date Recorded Sex Assigned at Not on file Legal Sex Male 8:50 AM GRANT MANAGER Gender Identity Not on file Sexual Orientation Not on file Obstetrics History Last Filed Vital Signs Vital Sign Reading Time Taken Comments Blood Pressure 150/91 11/14/2024 1:27 PM GRANT MANAGER Pulse 67 11/14/2024 1:27 PM GRANT MANAGER Temperature 36.4 C (97.6 F) 11/14/2024 1:27 PM GRANT MANAGER Respiratory Rate 18 11/14/2024 1:27 PM GRANT MANAGER Oxygen Saturation 96% 11/14/2024 1:27 PM GRANT MANAGER Inhaled Oxygen Concentration - - Weight 108.9 kg (240 lb) 11/14/2024 1:27 PM GRANT MANAGER Height 195.6 cm (6' 5 ) 11/14/2024 1:27 PM GRANT MANAGER Body Mass Index 28.46 11/14/2024 1:27 PM GRANT MANAGER Plan of Treatment Health Maintenance Due Date Last Done Comments Albumin Creatinine Ratio, Urine 1942 Depression Screening 1942 Hemoglobin A1C 1942 Dilated Eye Exam 1942 Foot Exam 1942 DTaP/Tdap/Td Vaccine (1 - Tdap) 1953 Well Visit 65+ 2007 Pneumococcal vaccine 65+ (2 of 2 - PCV) 05/18/2008 05/18/2007 Lipid Panel 06/05/2016 06/05/2015 Influenza Vaccine (Season Ended) 2025 06/01/20 17 Fall Risk Assessment 10/18/2025 10/18/2024 eGFR 11/14/2025 11/14/2024, 09/18, 09/28/2024 Zoster Vaccine Completed 10/01/2020, 06/02/2020 Hepatitis B Screening Completed 10/16/2024 Procedures Procedure Name Priority Date/Time Associated Diagnosis Comments COMPREHENSIVE METABOLIC PANEL Routine 11/14/2024 2:53 PM GRANT MANAGER 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 CBC WITH AUTO DIFFERENTIAL Routine 11/14/2024 2:53 PM GRANT MANAGER 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 URIC ACID Routine 11/14/2024 2:53 PM GRANT MANAGER 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 from Last 3 Months Results * (ABNORMAL) CBC with auto differential (11/14/2024 2:53 PM GRANT MANAGER) White Blood Count 9.3 3.6 - 11.2 K/uL [facility] RBC 4.79 4.06 - 5.63 M/uL [facility] Hemoglobin 16.0 13.0 - 17.5 g/dL [facility] Hematocrit 46.3 40.7 - 50.3 % [facility] MCV 96.5 80.0 - 97.6 fL [facility] MCH 33.4 26.7 - 33.7 pg [facility] MCHC 34.6 32.7 - 35.5 g/dL [facility] RBC Dist Width 13.8 12.3 - 17.0 % [facility] Platelet Count 204 140 - 440 K/uL [facility] MPV 6.9 6.8 - 10.4 fL [facility] Neutrophils % 69.8 38.7 - 74.5 % [facility] Lymphocyte % 19.5(L) 20.0 - 54.3 % [facility] Monocytes % 8.8 4.3 - 13.5 % [facility] Eosinophils % 1.3 0.0 - 6.0 % [facility] Basophil % 0.6 0.0 - 3.0 % [facility] Absolute Neutrophil 6.5 1.8 - 6.6 K/uL [facility] Absolute Lymphocyte 1.8 0.8 - 3.3 K/uL [facility] Absolute Monocyte 0.8 0.2 - 1.2 K/uL [facility] Absolute Eosinophil 0.1 0.0 - 0.5 K/uL [facility] Absolute Basophil 0.1 0.0 - 0.2 K/uL [facility] Nucleated RBC % 0.0 0.0 - 0.4 /100 WBC [facility] Blood 11/14/2024 2:53 PM GRANT MANAGER 11/14/2024 3:20 PM GRANT MANAGER Tristen Garland MD LAB BLOOD ORDERABLES Fin al Result Performing Organization Address [facility] Co de Phone Number [facility] * Uric acid (11/14/2024 2:53 PM GRANT MANAGER) Uric Acid 5.5 4.1 - 8.5 mg/dL [facility] Blood 11/14/2024 2:53 PM GRANT MANAGER 11/14/2024 3:20 PM GRANT MANAGER Tristen Garland MD LAB BLOOD ORDERABLES Fin al Result Performing Organization Address [facility] de Phone Number [facility] * (ABNORMAL) Comprehensive metabolic panel (11/14/2024 2:53 PM GRANT MANAGER) Total Protein 7.1 6.1 - 8.4 g/dL [facility] Albumin 4.3 3.5 - 5.2 g/dL [facility] Calcium 9.5 8.6 - 10.3 mg/dL [facility] BUN 31(H) 7 - 23 mg/dL [facility] Total Bilirubin 0.88 0.20 - 1.40 mg/dL [facility] Alk Phos, Total 111 35 - 129 IU/L [facility] AST (SGOT) 21 11 - 47 IU/L [facility] ALT (SGPT) 30 6 - 53 IU/L [facility] Creatinine 1.26 0.70 - 1.30 mg/dL [facility] Sodium 139 135 - 145 mmol/L [facility] Potassium 4.3 3.3 - 5.1 mmol/L [facility] Chloride 102 95 - 107 mmol/L [facility] CO2 Content 27 21 - 29 mmol/L [facility] Glucose 111(H) 64 - 99 mg/dL [facility] Comment: NONFASTING GLUCOSE RANGE = 64-199 mg/dL FASTING GLUCOSE 64 - 99 = NORMAL FASTING GLUCOSE 100 - 125 = IMPAIRED FASTING GLUCOSE FASTING GLUCOSE >=126 = PROVISIONAL DIAGNOSIS OF DIABETES eGFR 56.9(L) >60.0 mL/min/1.7 3 m2 [facility] Blood 11/14/2024 2:53 PM GRANT MANAGER 11/14/2024 3:20 PM GRANT MANAGER Tristen Garland MD LAB BLOOD ORDERABLES Fin al Result Performing Organization Address City/State/[facility] Co de Phone Number [facility] from Last 3 Months Insurance [facility] ADVANTAGE [facility] AD[facility] Advance Directives For more information, please contact: [phone] * Full Code (Latest Code Status on File) Date Activated Date Inactivated Comments 10/15/2024 5:57 AM 10/18/2024 7:25 PM * Full Code Date Activated Date Inactivated Comments 09/28/2024 9:39 AM 09/29/2024 8:12 PM Care Teams Toe Closing Machine Tender Relationship Specialty Start Date End Date Ting Hemphill PA [address] [place] [address] PCP - General Family Practice 09/28/24
--- OUTSIDE RECORDS SUMMARY | 2025-02-02 10:16 | XMS_ITS | Encounter Summary ---
Author Organization [facility] Address [facility] [place] [address] Care Team Providers Care Revenue Field Auditor Name Role Phone George Martin MD Primary Care Provider [phone] Ting Hemphill PA-C Primary Care Provider [phone] Encounter Details Date Type Department Care Team (Late st Contact Info) Description 11/03/2020 Prep for Procedure [facility] Day [facility] [address] [place], [place] [phone] Kushal Man MD [address] [place] [address] Social History Tobacco Use Types Packs/Day Years Used Date Smoking Tobacco: Never Smokeless Tobacco: Never Alcohol Use Standard Drinks/Week Comments No 0 (1 standard drink = 0.6 oz pur e alcohol) AUDIT-C Answer Date Recorded Frequency of Alcohol Consumption Never 07/31/2019 Average Number of Drinks Not on file 019 Frequency of Binge Drinking Not on file 07/18 PHQ-2 Answer Date Recorded PHQ-2 Score - If the patient scores above 3, please move on to questions 3-9 0 10/18/2020 Sex and Gender Information Value Date Recorded Sex Assigned at Not on file Legal Sex Male 5:36 PM CDT Gender Identity Not on file Sexual Orientation Not on file COVID-19 Exposure Response Date Recorded In the last month, have you been in contact with someone who was confirmed or suspected to have Coronavirus / COVID-19? No / Unsure 11/06/2020 9:46 AM TOWER CRANE OPERATOR documented as of this encounter Plan of Treatment Not on file documented as of this encounter Results * PRE-SURGICAL/PRE-PROCEDURE CORONAVIRUS (COVID 19) (11/06/2020 9:46 AM TOWER CRANE OPERATOR) CORONAVIRUS SARS COV 2 PCR (RESP) NOT DETECTED NOT DETECTED 11/07/2020 2:26 PM TOWER CRANE OPERATOR [employer] [facility] Comment: A Not Detected (negative) test result for this test means that SARS- CoV-2 RNA was not present in the specimen above the limit of detection. A negative result does not rule out the possibility of COVID-19 and should not be used as the sole basis for treatment or patient management decisions. If COVID-19 is still suspected, based on exposure history together with other clinical findings, re-testing should be considered in consultation with public health authorities. Laboratory test results should always be considered in the context of clinical observations and epidemiological data in making a final diagnosis and patient management decisions. Please review the Fact Sheets and FDA authorized labeling available for health care providers and patients using the following websites: [email or web address]-19/[email or web address]/fact-sheet2 [email or web address]://[email or web address]/home/Covid-19/Patients/NAAT/ fact-sheet2 This test has been authorized by the FDA under an Emergency Use Authorization (EUA) for use by authorized laboratories. Due to the current public health emergency, [facility] is receiving a high volume of samples from a wide variety of swabs and media for COVID-19 testing. In order to serve patients during this public health crisis, samples from appropriate clinical sources are being tested. Negative test results derived from specimens received in non-commercially manufactured viral collection and transport media, or in media and sample collection kits not yet authorized by FDA for COVID-19 testing should be cautiously evaluated and the patient potentially subjected to extra precautions such as additional clinical monitoring, including collection of an additional specimen. Methodology: Nucleic Acid Amplification Test (NAAT) includes RT-PCR or TMA Additional information about COVID-19 can be found at the [facility] website: www.[email or web address].[email or web address]/Covid19. Test performed at [facility] [address] [address] Director: SETH MADDEN DO,MPH FIRST TEST NO 11/06/2020 9:47 AM TOWER CRANE OPERATOR [facility] EMPLOYED IN HEALTHCARE NO 11/06/2020 9:47 AM TOWER CRANE OPERATOR [facility] SYMPTOMATIC DEFINED BY CDC NO 11/06/2020 9:47 AM TOWER CRANE OPERATOR [facility] DATE OF SYMPTOM ONSET UNKNOWN 11/06/2020 9:56 AM [facility] HOSPITALIZATION STATUS NO 11/06/2020 9:47 AM TOWER CRANE OPERATOR [facility] PATIENT IN ICU NO 11/06/2020 9:47 AM TOWER CRANE OPERATOR [facility] RESIDENT OF [facility] NO 11/06/2020 9:47 AM TOWER CRANE OPERATOR [facility] NO 11/06/2020 9:56 AM TOWER CRANE OPERATOR [facility] PATIENT'S RACE WHITE OR 11/06/2020 9:47 AM [facility] ETHNICITY NONHISPANIC 11/06/2020 9:47 AM TOWER CRANE OPERATOR [facility] SOURCE (QST) NASOPHARYNGEAL SWAB 11/06/2020 9:47 AM [facility] NASOPHARYNGEAL SWAB / Unknown 11/06/2020 9:46 AM TOWER CRANE OPERATOR us Kushal Man MD MICROBIOLOGY - GENERAL ORDERABL ES Final Result [facility] [address] [place] [address], [facility] [address] [place] [address] GL documented in this encounter Visit Diagnoses Diagnosis Preop testing- Primary Preoperative examination, unspecified documented in this encounter Additional Health Concerns Infection Onset Date Last Indicated Resolved Time COVID-19 Rule Out 11/06/2020 11/06/2020 11/07/2020 2:26 PM TOWER CRANE OPERATOR COVID-19 Rule Out 09/23/2021 09/23/2021 09/23/2021 10:38 PM TOWER CRANE OPERATOR COVID-19 Rule Out 09/11/2024 09/11/2024 09/11/2024 10:27 AM TOWER CRANE OPERATOR documented as of this encounter Care Teams Revenue Field Auditor Relationship Specialty Start Date End Date George Martin MD [address] [place] [id number] PCP - General INTERNAL MEDICINE 07/02/19 09/26/24 Ting Hemphill PA-C [address] [place] [address] PCP - General PHYSICIAN BAKER DOUGHNUT 09/27/24 documented as of this encounter
--- OUTSIDE RECORDS SUMMARY | 2025-02-02 10:16 | XMS_ITS | Encounter Summary ---
Author Organization [facility] Address [facility] [place] [address] Care Team Providers Care Corporate Director Of Human Resources Name Role Phone George Martin MD Primary Care Provider [phone] Ting Hemphill PA-C Primary Care Provider [phone] Encounter Details Date Type Department Care Team (Late st Contact Info) Description 10/07/2020 Prep for Procedure [facility] Day Services [address] [place] [address] Kushal Man MD [address] [place] [address] Social History Tobacco Use Types Packs/Day [...] 07/18 PHQ-2 Answer Date Recorded PHQ-2 Score 0 10/06/2020 Sex and Gender Information Value Date Recorded Sex Assigned at Not on file Legal Sex Male 5:36 PM CDT Gender Identity Not on file Sexual Orientation Not on file COVID-19 Exposure Response Date Recorded In the last month, have you been in contact with someone who was confirmed or suspected to have Coronavirus / COVID-19? No / Unsure 10/09/2020 8:44 AM TERRITORY DEVELOPMENT MANAGER documented as of this encounter Plan of Treatment Not on file documented as of this encounter Results * PRE-SURGICAL/PRE-PROCEDURE CORONAVIRUS (COVID 19) (10/09/2020 8:45 AM TERRITORY DEVELOPMENT MANAGER) CORONAVIRUS SARS COV 2 PCR (RESP) NOT DETECTED NOT DETECTED 10/10/2020 2:32 PM TERRITORY DEVELOPMENT MANAGER [facility] Comment: A Not Detected (negative) test result [...] providers and patients using the following websites: https://www.[employer]axia/home/Covid-19/HCP/NAAT/fact-sheet2 https://www.[employer]axia/home/Covid-19/Patients/NAAT/ fact-sheet2 This test has been authorized by the FDA under an Emergency Use Authorization (EUA) for use by authorized laboratories. Due to the current public health emergency, [facility] is receiving a high volume of samples [...] about COVID-19 can be found at the [employer] website: www.[employer].Abaxia/Covid19. Test performed at [facility] [place] [address] [place] [address] Director: SETH MADDEN DO,MPH FIRST TEST YES 10/09/2020 8:45 AM TERRITORY DEVELOPMENT MANAGER [facility] EMPLOYED IN HEALTHCARE NO 10/09/2020 8:45 AM TERRITORY DEVELOPMENT MANAGER [facility] SYMPTOMATIC DEFINED BY CDC UNKNOWN 10/09/2020 8:45 AM TERRITORY DEVELOPMENT MANAGER [facility] DATE OF SYMPTOM ONSET UNKNOWN 10/09/2020 8:59 AM TERRITORY DEVELOPMENT MANAGER [facility] HOSPITALIZATION STATUS NO 10/09/2020 8:45 AM TERRITORY DEVELOPMENT MANAGER [facility] PATIENT IN ICU NO 10/09/2020 8:45 AM TERRITORY DEVELOPMENT MANAGER [facility] RESIDENT OF CONGREGATE CARE NO 10/09/2020 8:45 AM TERRITORY DEVELOPMENT MANAGER [facility] NO 10/09/2020 8:59 AM TERRITORY DEVELOPMENT MANAGER [facility] PATIENT'S RACE WHITE OR 10/09/2020 8:45 AM [facility] ETHNICITY NONHISPANIC 10/09/2020 8:45 AM TERRITORY DEVELOPMENT MANAGER [facility] SOURCE (QST) NASOPHARYNGEAL SWAB 10/09/2020 8:45 AM TERRITORY DEVELOPMENT MANAGER [facility] NASOPHARYNGEAL SWAB / Unknown 10/09/2020 8:45 AM TERRITORY DEVELOPMENT MANAGER us Kushal Man MD MICROBIOLOGY - GENERAL ORDERABL ES Final Result [facility] [address] [place] [address], [facility] [facility] [id number] [place] [address], documented in this encounter Visit Diagnoses Diagnosis Preop testing- Primary Preoperative examination, unspecified documented in this encounter Additional Health Concerns Infection Onset Date Last Indicated Resolved Time COVID-19 Rule Out 10/09/2020 10/09/2020 10/10/2020 2:32 PM TERRITORY DEVELOPMENT MANAGER COVID-19 Rule Out 11/06/2020 11/06/2020 11/07/2020 2:26 PM TERRITORY DEVELOPMENT MANAGER COVID-19 Rule Out 09/23/2021 09/23/2021 09/23/2021 10:38 PM TERRITORY DEVELOPMENT MANAGER COVID-19 Rule Out 09/11/2024 09/11/2024 09/11/2024 10:27 AM TERRITORY DEVELOPMENT MANAGER documented as of this encounter Care Teams Corporate Director Of Human Resources Relationship Specialty Start Date End Date George Martin MD [address] [place] [address] PCP - General INTERNAL MEDICINE 07/02/19 09/26/24 Ting Hemphill PA-C [address] [place] [address] PCP - General PHYSICIAN INTERNAL WHOLESALER 09/27/24 documented as of this encounter
--- OUTSIDE RECORDS SUMMARY | 2025-02-02 10:16 | XMS_ITS | Clinical Summary ---
Author Organization [facility] Address [address] [place] [address] Care Team Providers Care Clip Bolter And Wrapper Name Role Phone Ting Hemphill PA-C Primary Care Provider [phone] Allergies Active Allergy Reactions Criticality Noted Date Comments Sulfa Antibiotics Unknown 10/31/2019 Medications losartan 100 MG tablet Take 100 mg by mouth daily. Active hydrochlorothia zide 12.5 MG tablet Take 12.5 mg by mouth every morning. Active finasteride 5 MG tablet Take 1 tablet (5 mg total) by mouth daily. Active nebivolol 5 MG tablet Take 1 tablet (5 mg total) by mouth daily. Active pramipexole 0.5 MG tablet Take 1 tablet (0.5 mg total) by mouth 3 (three) times daily. Active pantoprazole EC 40 MG tablet Take 40 mg by mouth daily. Active doxycycline hyclate 100 MG capsuleIndicati ons:not taking Take 100 mg by mouth 2 (two) times daily. Indications: not taking Active multivitamin with minerals liquid Take 15 mLs by mouth daily. Active Ginkgo Biloba (GINKOBA OR) Active Selenium 100 MCG Cap Active B Llpmtho-C-Hsrtm Acid (BROOKE-CARLOS OR) Active ranitidine 150 MG tablet Take 150 mg by mouth every morning. 0 9 Active amlodipine 5 MG tablet Take 5 mg by mouth daily. 0 Active BYSTOLIC 20 MG tablet 0 Active furosemide 20 MG tablet Take 1 tablet (20 mg total) by mouth every morning. 0 Active clopidogrel 75 MG tablet Take 75 mg by mouth daily. 0 Active [facility] ASPIRIN EC 81 MG tablet TAKE 1 TABLET BY MOUTH EVERY DAY 0 Active pravastatin 10 MG tablet Take 1 tablet (10 mg total) by mouth nightly at bedtime. Active tamsulosin (FLOMAX) 0.4 MG Cap Take 1 capsule (0.4 mg total) by mouth daily. Active fish oil 1000 MG Cap capsule Take 1,000 mg by mouth 2 (two) times daily. Active irbesartan (AVAPRO) 300 MG tablet Take 1 tablet (300 mg total) by mouth daily. 4 Active azithromycin (ZITHROMAX) 250 MG tabletIndicatio ns:Sore throat,Bronchit is Take 2 tablets by mouth on day one then 1 daily for four days. 6 tablet 4 Active Additional Information Patient not taking.Reported on 09/16/2024 cefdinir (OMNICEF) 300 MG Cap capsuleIndicati ons:Non-recurre nt acute serous otitis media of both ears,Bronchitis Take 1 capsule (300 mg total) by mouth 2 (two) times daily. 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 Inflamed seborrheic keratosis 11/08/2011 Diabetes mellitus ([facility]) 08/23/2011 Pain of toe 08/23/2011 Immunizations Immunization Administration Dates Next Due Fluzone High Dose - >Age 65 (Prefilled Syringe) 06/01/2017 Pneumococcal (Pneumovax 23) 05/18/2007 Shingrix 10/01/2020,06/02/2020 Family History Medical History Relation Comments Cancer Father Cancer Mother Relation Status Comments Father Alive Mother Social History Tobacco Use Types Packs/Day Years Used Date Smoking Tobacco: Never Smokeless Tobacco: Never Tobacco Cessation:Counseling Given: No Alcohol Use Standard Drinks/Week Comments No 0 [...] on file Sexual Orientation Not on file Last Filed Vital Signs Vital Sign Reading Time Taken Comments Blood Pressure 164/95 09/28/2024 12:34 AM SALES ENABLEMENT CONSULTANT Pulse 80 09/28/2024 12:34 AM SALES ENABLEMENT CONSULTANT Temperature 37.1 C (98.8 F) 09/28/2024 12:34 AM SALES ENABLEMENT CONSULTANT Respiratory Rate 18 09/28/2024 12:3 4 AM SALES ENABLEMENT CONSULTANT Oxygen Saturation 97% 09/28/2024 12: 34 AM SALES ENABLEMENT CONSULTANT Inhaled Oxygen Concentration - - Weight 114.8 kg (253 lb 1.4 oz) 09/27/2024 3:43 PM SALES ENABLEMENT CONSULTANT Height 195.6 cm (6' 5 ) 09/27/2024 3:43 PM SALES ENABLEMENT CONSULTANT Body Mass Index 30.01 09/27/2024 3:43 PM SALES ENABLEMENT CONSULTANT Plan of Treatment Health Maintenance Due Date Last Done Comments Kidney Health Evaluation 1942 Hemoglobin A1C 1942 Diabetes: Retinopathy Eye Exam 1960 DTaP, Tdap and Td Vaccines ( 1 - Tdap) 1961 Annual Medicare Wellness Visit 2007 Pneumococcal Vaccine: 50+ Years (2 of 2 - PCV) 05/18/2008 05/18/2007 Lipid Panel 06/05/2016 06/05/2015 RSV Immunization or 60+ Years (1 - 1-dose 75+ series) 2017 COVID-19 Vaccine (2023-2 5 season) 2024 PHQ-2 (Physician [place]) 09/17/2024 Zoster Vaccines Completed 10/01/2020, 06/02/2020 Meningococcal B Vaccine Aged Out No l onger eligible based on patient's age to complete this topic Meningococcal Vaccine Aged Out No tito scarlett eligible based on patient's age to complete this topic RSV Immunizations Under 20 Months Aged Out No longer eligible b ased on patient's age to complete this topic Medical Devices Implanted Type Area Skin Therapist Device Identifier Shelf Expiration Date Model / Serial / Lot Stent Coronary 22mm 4mm Rslt-12/02/2019 Implanted:Qty: 1 on 12/02/2019 by Karl Aguilera MD Stent N/A: Heart [employer] [id number] / [id number] / [id number] Insurance [facility] Care Teams Clip Bolter And Wrapper Relationship Specialty Start Date End Date Ting Hemphill PA-C [address] [place], [place] [address] [place] [address] PCP - General PHYSICIAN SOLE DYER 09/27/24
--- OUTSIDE RECORDS SUMMARY | 2025-02-02 10:16 | XMS_ITS | Clinical Summary ---
Author Organization [facility] Address [address] [place] [address] Phone Care Team Providers Care Wheel Press Operator Name Role Phone Provider, Not On File Primary Care Provider Unav ailable Allergies No known active allergies Medications losartan-hydroch lorothiazide (HYZAAR) 100-12.5 MG Tablet Take 1 Tab by mouth daily. Active nebivolol (BYSTOLIC) 5 MG Tablet Take 5 mg by mouth daily. Active ibuprofen (MOTRIN) 200 MG Tablet Take 3 Tabs by mouth every 6 hours as needed for Pain. 06/05/2015 Active Active Problems Problem Noted Date Diagnosed Date Chills 06/05/2015 Fatigue 06/05/2015 HTN (hypertension) 06/05/2015 Elevated troponin 06/05/2015 Acute viral syndrome 06/05/2015 Immunizations Immunization Administration Dates Next Due Pneumococcal Vaccine Adult - 23 Valent 7 Social History Tobacco Use Types Packs/Day Years Used Date Smoking Tobacco: Never Alcohol Use Standard Drinks/Week Comments Yes 0 (1 standard drink = 0.6 oz pur e alcohol) Sex and Gender Information Value Date Recorded Sex Assigned at Not on file Legal Sex Male 2:57 AM CDT Gender Identity Not on file Sexual Orientation Not on file Last Filed Vital Signs Vital Sign Reading Time Taken Comments Blood Pressure 138/64 06/05/2015 4:01 PM CDT Pulse 65 06/05/2015 7:45 AM CDT Temperature 37.6 C (99.6 F) 06/05/2015 4:01 PM CDT Respiratory Rate 18 06/05/2015 4:01 PM CDT Oxygen Saturation 94% 06/05/2015 4:01 PM CDT Inhaled Oxygen Concentration - - Weight 99.8 kg (220 lb) 06/05/2015 8:25 AM CDT Height 198.1 cm (6' 6 ) 06/05/2015 8:25 AM CDT Body Mass Index 25.42 06/05/2015 8:25 AM CDT Plan of Treatment Not on file Advance Directives * Full Code (Latest Code Status on File) Date Activated Date Inactivated Comments 06/05/2015 12:28 PM 06/05/2015 8:50 PM Full Code: FULL ARREST: Attempt Resuscitation/CPR and use intubation and mechanical ventilation as indicated. PRE-ARREST: Use all measures to stabilize patient. Care Teams Wheel Press Operator Relationship Specialty Start Date End Date Provider, Not On File [place] PCP - General 06/05/15
--- OUTSIDE RECORDS SUMMARY | 2025-02-02 10:16 | XMS_ITS | Encounter Summary ---
Author Organization [facility] Address [facility] [place] [address] Care Team Providers Care Early Childhood Teacher Name Role Phone George Martin MD Primary Care Provider [phone] Ting Hemphill PA-C Primary Care Provider [phone] Encounter Details Date Type Department Care Team (Late st Contact Info) Description 12/31/2012 Abstract [facility] CONVERSION [address], [place] [id number] , Generic ConversionMD Social History Tobacco Use Types Packs/Day Years Used Date Smoking Tobacco: Never Assessed Sex and Gender Information Value Date Recorded Sex Assigned at Not on file Legal Sex Male 5:36 PM CDT Gender Identity Not on file Sexual Orientation Not on file documented as of this encounter Plan of Treatment Not on file documented as of this encounter Visit Diagnoses Not on filedocumented in this encounter Additional Health Concerns Infection Onset Date Last Indicated Resolved Time COVID-19 Rule Out 10/09/2020 10/09/2020 10/10/2020 2:32 PM DELI CUTTER SLICER COVID-19 Rule Out 11/06/2020 11/06/2020 11/07/2020 2:26 PM DELI CUTTER SLICER COVID-19 Rule Out 09/23/2021 09/23/2021 09/23/2021 10:38 PM DELI CUTTER SLICER COVID-19 Rule Out 09/11/2024 09/11/2024 09/11/2024 10:27 AM DELI CUTTER SLICER documented as of this encounter Care Teams Early Childhood Teacher Relationship Specialty Start Date End Date George Martin MD [address] [place] [address] PCP - General INTERNAL MEDICINE 07/02/19 09/26/24 Ting Hemphill PA-C [address] [place] [address] [address] [place] [address] PCP - General PHYSICIAN CASE MANAGEMENT COORDINATOR 09/27/24 documented as of this encounter
--- OUTSIDE RECORDS SUMMARY | 2025-02-02 10:16 | XMS_ITS | Referral Summary ---
Author Organization [facility] [address] Address [address] [place] [address] Care Team Providers Care Peritoneal Dialysis Registered Nurse Name Role Phone Ting Hemphill Primary Care Provider [phone] Encounters Date Type Department Care Team Description 12/17/2024 Telephone [facility] Rheumatology [address] [facility] [address] [place] [id number] Gopal Newby, A 11/24/2024 Results Follow-Up [facility] Rheumatology [address] [place] [address] Tristen Garland MD Uric acid, CBC with auto differential, Comprehensive metabolic panel 11/14/2024 2:45 PM WHEEL BLOCKER Lab [facility] Endocrinology Metabolism and Lipid [address] [place] [phone] 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 5th [place] [phone] Arthritis of hpgbqghp-ebgihxzlw-m rapezoid joint of right hand (Primary Dx) 11/13/2024 Telephone [facility] Rheumatology [address] [facility] 5[address] [place] [address] [place] [address] Remi Benitez Case Management- Basic Needs; PHV from Last 3 Months Allergies Active Allergy Reactions Criticality Noted Date [...] 1 tablet (20 mg total) by mouth television installer before breakfast 0 Active pramipexole (MIRAPEX) 0.5 [...] 1 tablet (12.5 mg total) by mouth television installer before breakfast Active ibuprofen 200 mg tab/cap [...] 10/17/2024 Assessment & Plan (10/18/2024 12:51 PM WHEEL BLOCKER): Likely in setting of cellulitis however on [...] 10/15/2024 Assessment & Plan (10/17/2024 3:00 PM WHEEL BLOCKER): 84 y.o. male with PMH including: CAD, [...] input. Assessment & Plan (10/18/2024 12:51 PM WHEEL BLOCKER): More likely recurrent cellulitis based on the [...] 09/28/2024 Assessment & Plan (09/29/2024 11:05 AM WHEEL BLOCKER): -Patient had a fall on ice/snow on [...] 09/28/2024 Assessment & Plan (10/15/2024 6:58 AM WHEEL BLOCKER): -Continue home asa Assessment & Plan (09/28/2024 4:17 PM WHEEL BLOCKER): History of coronary artery disease status post stenting 5 years ago Continue aspirin, beta brett, statin Hypertension, essential 09/28/2024 Assessment & Plan (10/15/2024 7:00 AM WHEEL BLOCKER): -Continue home irbesartan and bistolic. Hold lasix as patient appears to be euvolemic Assessment & Plan (09/28/2024 4:18 PM WHEEL BLOCKER): Continue home irbesartan, nebivolol, Lasix BPH (benign prostatic hyperplasia) 09/28/2024 Assessment & Plan (10/15/2024 6:58 AM WHEEL BLOCKER): -Continue home flomax and proscar Assessment & Plan (09/28/2024 4:18 PM WHEEL BLOCKER): Continue home tamsulosin, finasteride RLS (restless legs syndrome) 09/28/2024 Assessment & Plan (10/15/2024 6:59 AM WHEEL BLOCKER): -Continue home pramipexole. On chart patient was prescribed with tid dosing but patient only takes nightly Assessment & Plan (09/28/2024 4:18 PM WHEEL BLOCKER): Continue home pramipexole HLD (hyperlipidemia) 09/28/2024 Assessment & Plan (10/15/2024 7:00 AM WHEEL BLOCKER): -Continue home statin Assessment & Plan (09/28/2024 4:18 PM WHEEL BLOCKER): Continue home pravastatin Keratosis, senilis 11/08/2011 Atrophic scar 11/08/2011 Inflamed seborrheic keratosis 11/08/2011 Diabetes mellitus 08/23/2011 Metatarsalgia 08/23/2011 Pain of toe 08/23/2011 Acquired claw toe 08/23/2011 Social History Tobacco Use Types Packs/Day Years [...] on file Legal Sex Male 8:50 AM WHEEL BLOCKER Gender Identity Not on file Sexual Orientation Not on file Last Filed Vital Signs Vital Sign Reading Time Taken Comments Blood Pressure 150/91 11/14/2024 1:27 PM WHEEL BLOCKER Pulse 67 11/14/2024 1:27 PM WHEEL BLOCKER Temperature 36.4 C (97.6 F) 11/14/2024 1:27 PM WHEEL BLOCKER Respiratory Rate 18 11/14/2024 1:27 PM WHEEL BLOCKER Oxygen Saturation 96% 11/14/2024 1:27 PM WHEEL BLOCKER Inhaled Oxygen Concentration - - Weight 108.9 kg (240 lb) 11/14/2024 1:27 PM WHEEL BLOCKER Height 195.6 cm (6' 5 ) 11/14/2024 1:27 PM WHEEL BLOCKER Body Mass Index 28.46 11/14/2024 1:27 PM WHEEL BLOCKER Plan of Treatment Not on file Procedures Procedure Name Priority Date/Time Associated Diagnosis Comments COMPREHENSIVE METABOLIC PANEL Routine 11/14/2024 2:53 PM WHEEL BLOCKER 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 CBC WITH AUTO DIFFERENTIAL Routine 11/14/2024 2:53 PM WHEEL BLOCKER 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 URIC ACID Routine 11/14/2024 2:53 PM WHEEL BLOCKER 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 from Last 3 Months Results * (ABNORMAL) CBC with auto differential (11/14/2024 2:53 PM WHEEL BLOCKER) White Blood Count 9.3 3.6 - 11.2 [...] [facility] Blood 11/14/2024 2:53 PM WHEEL BLOCKER 11/14/2024 3:20 PM WHEEL BLOCKER us Tristen Garland MD LAB BLOOD ORDERABLES Fin al Result [facility] * Uric acid (11/14/2024 2:53 PM WHEEL BLOCKER) Uric Acid 5.5 4.1 - 8.5 mg/dL [facility] Blood 11/14/2024 2:53 PM WHEEL BLOCKER 11/14/2024 3:20 PM WHEEL BLOCKER Tristen Garland MD LAB BLOOD ORDERABLES Fin al Result [facility] * (ABNORMAL) Comprehensive metabolic panel (11/14/2024 2:53 PM WHEEL BLOCKER) Total Protein 7.1 6.1 - 8.4 g/dL [...] [facility] Blood 11/14/2024 2:53 PM WHEEL BLOCKER 11/14/2024 3:20 PM WHEEL BLOCKER Tristen Garland MD LAB BLOOD ORDERABLES Fin al Result [facility] from Last 3 Months Insurance [facility] MEDICARE ADVANTAGE [facility] MEDICARE ADVANTAGE [facility] MEDICARE ADVANTAGE Advance Directives For more information, please contact: [phone] * Full Code (Latest Code Status on File) Date Activated Date Inactivated Comments 10/15/2024 5:57 AM 10/18/2024 7:25 PM * Full Code Date Activated Date Inactivated Comments 09/28/2024 9:39 AM 09/29/2024 8:12 PM Care Teams Peritoneal Dialysis Registered Nurse Relationship Specialty Start Date End Date Ting Hemphill PA [address] [place] [address] PCP - General Family Practice 09/28/24
== END 2025-02-02 09:45 | disposition home or self-care (01) ==
PROVIDERS: PCP Physician Assistant Medical; Visit Provider Podiatrist Foot & Ankle Surgery
DX: M19.072 Primary osteoarthritis, left ankle and foot (principal)
CPT/HCPCS: 73630